=== PATIENT | male | born 1955 | race Caucasian/White ===

== ENCOUNTER 2019-10-29 12:38 | Observation (INO) | payer OTHER ==
[2019-10-29 13:27] LABS: Basophils # (A) 0.1 k/uL (0-0.2); Basophils % (A) 1 %; Eosinophils # (A) 0.3 k/uL (0-0.7); Eosinophils % (A) 4 %; HCT 49.9 % (39.0-53.0); HGB 16.2 gm/dL (13.0-17.5); Lymphocytes # (A) 1.7 k/uL (1.0-4.8); Lymphocytes % (A) 19 %; MCH 32.8 pg (25.0-35.0); MCHC 32.6 g/dL (31.0-37.0); MCV 100.7 fL (80.0-100.0); Mean Platelet Volume 7.4; Monocytes # (A) 0.4 k/uL (0-1.0); Monocytes % (A) 4 %; Neutrophils # (A) 6.2 k/uL (1.3-7.7); Neutrophils % (A) 71 %; Platelet Count 206 k/uL (150-450); RBC 4.95 m/uL (4.30-5.90); RDW 13.1 % (11.5-15.5); WBC 8.7 k/uL (3.8-10.6)
--- NOTE | 2019-10-29 13:30 | XR ---
EXAMINATION TYPE: XR chest 2V DATE OF EXAM: 10/29/2019 COMPARISON: NONE HISTORY: Left-sided chest pain into neck. TECHNIQUE: Frontal and lateral views of the chest are obtained. FINDINGS: Evidence of old granulomatous disease with superior right lower lobe calcified granuloma an d calcified right hilar lymph nodes. There is some chronic parenchymal change without suspicious foc al air space opacity, pleural effusion, or pneumothorax seen. The cardiac silhouette size is within normal limits. The osseous structures are intact. IMPRESSION: Chronic changes without acute process.
[2019-10-29] MEDS ORDERED: ASPIRIN 325 MG TAB PO STA (13:31)
--- NOTE | 2019-10-29 13:31 | ED ---
General Adult HPI - General Chief complaint: Chest Pain Stated complaint: Pain in neck going down left arm Time Seen by Provider: 10/29/19 13:11 Source: patient, RN notes reviewed, old records reviewed Mode of arrival: wheelchair Limitations: no limitations - History of Present Illness Initial comments: 64-year-old male presents for evaluation of chest pain, left-sided neck pain and left arm pain. Pain is been present for 2 days. Is constant in nature. Patient has associated diaphoresis. He denies shooting or stabbing pain. He describes it as a central chest pressure. He states he was at an outside hospital approximately 2 weeks ago and was diagnosed with "blood disorder", he does not know any of the details of this diagnosis. He does not report a known history of coronary artery disease. He denies vomiting. Denies abdominal pain. - Related Data Home Medications Medication Instructions Recorded Confirmed No Known Home Medications 10/29/19 10/29/19 Allergies Allergy/AdvReac Type Severity Reaction Status Date / Time No Known Allergies Allergy Verified 10/29/19 14:52 Review of Systems ROS Statement: Those systems with pertinent positive or pertinent negative responses have been documented in the HPI. ROS Other: All systems not noted in ROS Statement are negative. Past Medical History Past Medical History: Heart Failure Additional Past Medical History / Comment(s): "blood disease" History of Any Multi-Drug Resistant Organisms: MRSA Date of last positivie culture/infection: unknown MDRO Source:: rt hand Past Surgical History: Hernia Repair, Orthopedic Surgery Past Psychological History: No Psychological Hx Reported Smoking Status: Current every day smoker Past Alcohol Use History: Daily Past Drug Use History: None Reported General Exam Limitations: no limitations General appearance: alert, in no apparent distress Head exam: Present: atraumatic, normocephalic Eye exam: Present: normal appearance, PERRL ENT exam: Present: normal exam Neck exam: Present: normal inspection. Absent: tenderness, meningismus Respiratory exam: Present: respiratory distress, wheezes (Scattered wheezing, no respiratory distress) Cardiovascular Exam: Present: regular rate, normal rhythm GI/Abdominal exam: Present: soft. Absent: distended, tenderness, guarding, rebound Extremities exam: Present: normal capillary refill, pedal edema (Trace pedal edema bilaterally) Neurological exam: Present: alert, oriented X3, CN II-XII intact. Absent: motor sensory deficit Psychiatric exam: Present: normal affect, normal mood Skin exam: Present: warm, diaphoretic Course Vital Signs 10/29/19 10/29/19 10/29/19 12:56 13:08 13:35 Temperature 98.1 F Pulse Rate 89 85 Pulse Rate [ 84 Telescope Repairer ] Respiratory 20 18 Rate Blood Pressure 139/87 137/86 O2 Sat by Pulse 98 96 Oximetry 10/29/19 14:52 Temperature 98.8 F Pulse Rate 80 Pulse Rate [ Telescope Repairer ] Respiratory 18 Rate Blood Pressure 157/82 O2 Sat by Pulse 95 Oximetry EKG Findings - EKG Comments: EKG Findings:: EKG: Normal sinus rhythm, LVH with repolarization abnormality, no ST segment depression and T-wave abnormality in lead 1, 2, 3, aVF and the l ateral precordial leads V4 V5 and V6. No ST segment elevation. Rate of 84, FL interval 148, QRS duration 96, QTC 467. Medical Decision Making - Medical Decision Making 64-year-old presenting with chest tightness, radiating to the left arm. EKG showing diffuse ST segment depression, no old for comparison. Patient is a poor historian. Workup reveals chest x-ray which is negative for acute cardiopulmonary disease, CT angiography is negative for PE, shows granulomatous disease. She has a normal CBC, normal CMP, negative initial troponin. I discussed case with Dr. Welch and Dr. Andrew. Will admit on IV heparin for chest pain with EKG changes and unstable angina. - Lab Data Result diagrams: 10/29/19 13:17 10/29/19 13:17 Lab Results 10/29/19 10/29/19 10/29/19 Range/Units 13:17 13:17 13:17 WBC 8.7 (3.8-10.6) k/uL RBC 4.95 (4.30-5.90) m/uL Hgb 16.2 (13.0-17.5) gm/dL Hct 49.9 (39.0-53.0) % MCV 100.7 H (80.0-100.0) fL MCH 32.8 (25.0-35.0) pg MCHC 32.6 (31.0-37.0) g/dL RDW 13.1 (11.5-15.5) % Plt Count 206 (150-450) k/uL Neutrophils % 71 % Lymphocytes % 19 % Monocytes % 4 % Eosinophils % 4 % Basophils % 1 % Neutrophils # 6.2 (1.3-7.7) k/uL Lymphocytes # 1.7 (1.0-4.8) k/uL Monocytes # 0.4 (0-1.0) k/uL Eosinophils # 0.3 (0-0.7) k/uL Basophils # 0.1 (0-0.2) k/uL PT 9.7 (9.0-12.0) sec INR 0.9 (<1.2) APTT 24.7 (22.0-30.0) sec Sodium 136 L (137-145) mmol/L Potassium 4.5 (3.5-5.1) mmol/L Chloride 103 (98-107) mmol/L Carbon Dioxide 28 (22-30) mmol/L Anion Gap 5 mmol/L BUN 13 (9-20) mg/dL Creatinine 0.74 (0.66-1.25) mg/dL Est GFR (CKD-EPI)AfAm >90 (>60 ml/min/1.73 sqM) Est GFR (CKD-EPI)NonAf >90 (>60 ml/min/1.73 sqM) Glucose 128 H (74-99) mg/dL Calcium 8.8 (8.4-10.2) mg/dL Magnesium 1.9 (1.6-2.3) mg/dL Total Bilirubin 0.7 (0.2-1.3) mg/dL AST 43 (17-59) U/L ALT 30 (4-49) U/L Alkaline Phosphatase 78 (38-126) U/L Troponin I (0.000-0.034) ng/mL NT-Pro-B Natriuret Pep pg/mL Total Protein 6.5 (6.3-8.2) g/dL Albumin 4.1 (3.5-5.0) g/dL 10/29/19 10/29/19 Range/Units 13:17 13:17 WBC (3.8-10.6) k/uL RBC (4.30-5.90) m/uL Hgb (13.0-17.5) gm/dL Hct (39.0-53.0) % MCV (80.0-100.0) fL MCH (25.0-35.0) pg MCHC (31.0-37.0) g/dL RDW (11.5-15.5) % Plt Count (150-450) k/uL Neutrophils % % Lymphocytes % % Monocytes % % Eosinophils % % Basophils % % Neutrophils # (1.3-7.7) k/uL Lymphocytes # (1.0-4.8) k/uL Monocytes # (0-1.0) k/uL Eosinophils # (0-0.7) k/uL Basophils # (0-0.2) k/uL PT (9.0-12.0) sec INR (<1.2) APTT (22.0-30.0) sec Sodium (137-145) mmol/L Potassium (3.5-5.1) mmol/L Chloride (98-107) mmol/L Carbon Dioxide (22-30) mmol/L Anion Gap mmol/L BUN (9-20) mg/dL Creatinine (0.66-1.25) mg/dL Est GFR (CKD-EPI)AfAm (>60 ml/min/1.73 sqM) Est GFR (CKD-EPI)NonAf (>60 ml/min/1.73 sqM) Glucose (74-99) mg/dL Calcium (8.4-10.2) mg/dL Magnesium (1.6-2.3) mg/dL Total Bilirubin (0.2-1.3) mg/dL AST (17-59) U/L ALT (4-49) U/L Alkaline Phosphatase (38-126) U/L Troponin I <0.012 (0.000-0.034) ng/mL NT-Pro-B Natriuret Pep 127 pg/mL Total Protein (6.3-8.2) g/dL Albumin (3.5-5.0) g/dL Critical Care Time Critical Care Time: Yes Total Critical Care Time: 35 Disposition Clinical Impression: Unstable angina pectoris Disposition: ADMITTED IP TO THIS [facility] Condition: Stable Is patient prescribed a controlled substance at d/c from ED?: No Referrals: Jace Connelly MD [Primary Care Provider] - 1-2 days Decision to Admit Reason: Admit from EC Decision Date: 10/29/19 Decision Time: 15:11
[2019-10-29 13:36] LABS: ALT 30 U/L (4-49); AST 43 U/L (17-59); African American GFR (CKD) >90 (>60 ml/min/1.73 sqM); Albumin 4.1 g/dL (3.5-5.0); Alkaline Phosphatase 78 U/L (38-126); Anion Gap 5 mmol/L; Blood Urea Nitrogen 13 mg/dL (9-20); Calcium 8.8 mg/dL (8.4-10.2); Carbon Dioxide 28 mmol/L (22-30); Chloride 103 mmol/L (98-107); Glucose 128 mg/dL (74-99); Magnesium 1.9 mg/dL (1.6-2.3); Non-African American GFR(CKD) >90 (>60 ml/min/1.73 sqM); Potassium 4.5 mmol/L (3.5-5.1); Sodium 136 mmol/L (137-145); Total Bilirubin 0.7 mg/dL (0.2-1.3); Total Protein 6.5 g/dL (6.3-8.2)
[2019-10-29 13:37] LABS: INR 0.9 (<1.2); Partial Thromboplastin Time 24.7 sec (22.0-30.0); Prothrombin Time 9.7 sec (9.0-12.0)
--- NOTE | 2019-10-29 14:33 | CT ---
EXAMINATION TYPE: CT angio chest DATE OF EXAM: 10/29/2019 COMPARISON: Chest x-ray earlier today. HISTORY: Left sided, head, neck and chest pain. Difficulty breathing. CT DLP: 399.6 mGycm. Automated Exposure Control for Dose Reduction was Utilized. CONTRAST: CTA scan of the thorax is performed with IV Contrast, patient injected with 100 mL of Isovue 370, pul monary embolism protocol. MIP Images are created on CT scanner and reviewed. FINDINGS: LUNGS: There is calcified 1.3 cm nodule or granuloma in the periphery inferior of the right upper lob e axial image 59. The lungs are grossly clear, there is no concerning noncalcified parenchymal mass o r nodule identified. There is no pleural effusion or pneumothorax seen bilaterally. The tracheobro nchial tree is patent. MEDIASTINUM: There is satisfactory enhancement of the pulmonary artery and its branches, there is no CT evidence for pulmonary embolism. Satisfactory enhancement of the thoracic aorta without aneurysm o r dissection. There are no greater than 1 cm noncalcified hilar or mediastinal lymph nodes. Confirmat ion of calcified right hilar and right tracheobronchial lymph nodes No cardiomegaly or pericardial e ffusion is seen. OTHER: Scattered calcifications throughout the spleen. Multilevel spurring in the thoracic spine. IMPRESSION: No CTA evidence for acute pulmonary embolism. Confirmation of old granulomatous disease. No suspicious acute pulmonary process.
[2019-10-29] MEDS ORDERED: NITROGLYCERIN SL TABS 0.4 MG TAB SUBLINGUAL PRN (15:06)
[2019-10-29] MEDS ORDERED: HEPARIN SODIUM,PORCINE 5,000 UNIT/ML 1 ML VIAL IV ONE (15:06)
[2019-10-29] MEDS ORDERED: HEPARIN SOD,PORK IN 0.45% NACL 25,000 UNIT in 0.45% NACL 1 250ML.BAG IV SCH (15:15)
[2019-10-29] MEDS ORDERED: LORazepam 2 MG/ML INJ IV PRN ×3 (16:05)
[2019-10-29] MEDS ORDERED: THIAMINE 100 MG/ML 2 ML VIAL IM STA (16:05)
[2019-10-29] MEDS: THIAMINE 100 MG TAB PO SCH (18:04)
[2019-10-29] MEDS ORDERED: TEMAZEPAM 15 MG CAP PO PRN (19:18)
[2019-10-29] MEDS ORDERED: HYDROmorphone 0.5 MG/0.5 ML SYRINGE IVP PRN (19:18)
--- NOTE | 2019-10-29 19:53 | HP ---
HISTORY AND PHYSICAL DATE OF SERVICE: 10/29/2019 CHIEF COMPLAINT: Chest pain. HISTORY OF PRESENT ILLNESS: This 64-year-old gentleman with a past medical history of multiple medical problems, including blood disorder, history of GERD, history of MRSA, history of hernia repair, being followed by Dr. Chew in the outpatient setting, was recently admitted to [facility] and was diagnosed to have blood disorder. Currently the patient is complaining of significant chest pain on the left side. The patient also had left neck pain and shoulder pain radiating to the left arm. The patient came to [facility] and was admitted for further evaluation and treatment. There is no history of any fever, rigor or chills. No history of headache, loss of consciousness, seizures at this time. PAST MEDICAL HISTORY: GERD, history of recent blood disorder, hernia repair. HOME MEDICATIONS: None. ALLERGIES: NONE. FAMILY HISTORY: History of asthma in the family. SOCIAL HISTORY: history of alcohol intake. No history of substance abuse. smoking. REVIEW OF SYSTEMS: ENT: No diminished hearing. No diminished vision. Otherwise as mentioned earlier. CARDIOVASCULAR SYSTEM: As mentioned earlier. RESPIRATORY SYSTEM: As mentioned earlier. GI: No nausea, vomiting. : No dysuria or retention. NERVOUS SYSTEM: As mentioned earlier. ALLERGY/IMMUNOLOGY: No asthma, hayfever. MUSCULOSKELETAL: As mentioned earlier. HEMATOLOGY/ONCOLOGY: As mentioned earlier. ENDOCRINE: No history of diabetes, hypothyroidism. CONSTITUTIONAL: As mentioned earlier. DERMATOLOGY: Negative. RHEUMATOLOGY: Negative. PSYCHIATRY: As mentioned earlier. PHYSICAL EXAMINATION: Patient alert and oriented x3. Pulse 71, blood pressure 148/74, respiration 18, temperature 98.7, pulse ox 97% on room air. HEENT: Conjunctivae normal. Oral mucosa moist. NECK: No jugular venous distention. No carotid bruit. No lymph node enlargement. CARDIOVASCULAR SYSTEM: S1, S2 muffled. RESPIRATORY SYSTEM: Breath sounds diminished at the bases. A few scattered rhonchi and crackles. ABDOMEN: Soft, non-tender. No mass palpable. LEGS: No edema. No swelling. NERVOUS SYSTEM: Higher functions as mentioned earlier. Moves all 4 limbs. No focal motor or sensory deficit. LYMPHATICS: No lymph node palpable in neck, axillae or groin. SKIN: No ulcer, rash, bleeding. JOINTS: No active deforming arthropathy. LABS: Labs at this time show WBC 8.6, hemoglobin 16.2, MCV 100.7. Sodium 136 and glucose 128. ASSESSMENT: 1. Left-sided chest pain and neck pain, possibly musculoskeletal. 2. Rule out coronary artery disease. 3. Increased mean corpuscular volume. 4. Hyponatremia. 5. Increased random blood sugar. 6. Rule out recent blood disorder diagnosis. 7. History of gastroesophageal reflux disease. 8. History of methicillin-resistant Staphylococcus aeruginosa. 9. History of hernia repair. 10.History of ETOH. 11.History of nicotine dependence. RECOMMENDATIONS AND DISCUSSION: In this 64-year-old gentleman who presented with multiple complex medical issues, we will monitor the patient closely. I would recommend symptomatic treatment of the pain. Cardiology consultation. Otherwise, will obtain records from the [facility]. CIWA protocol. Prognosis guarded because of the multiple complex medical issues. Further recommendations to follow. MMODL / IJN: [id number] / MTDD
[2019-10-29] MEDS: HYDROcodone/APAP 5-325MG 1 EACH TAB PO PRN (20:32)
[2019-10-30 06:00] LABS: Basophils # (A) 0.1 k/uL (0-0.2); Basophils % (A) 1 %; Eosinophils # (A) 0.4 k/uL (0-0.7); Eosinophils % (A) 5 %; HCT 49.7 % (39.0-53.0); HGB 16.2 gm/dL (13.0-17.5); Lymphocytes # (A) 1.5 k/uL (1.0-4.8); Lymphocytes % (A) 21 %; MCH 33.2 pg (25.0-35.0); MCHC 32.6 g/dL (31.0-37.0); Macrocytosis Slight; Mean Platelet Volume 7.2; Monocytes # (A) 0.3 k/uL (0-1.0); Monocytes % (A) 4 %; Neutrophils # (A) 4.8 k/uL (1.3-7.7); Neutrophils % (A) 67 %; Platelet Count 199 k/uL (150-450); RBC 4.88 m/uL (4.30-5.90); RDW 12.9 % (11.5-15.5); WBC 7.1 k/uL (3.8-10.6)
[2019-10-30 06:24] LABS: African American GFR (CKD) >90 (>60 ml/min/1.73 sqM); Anion Gap 4 mmol/L; Blood Urea Nitrogen 13 mg/dL (9-20); Calcium 8.5 mg/dL (8.4-10.2); Carbon Dioxide 27 mmol/L (22-30); Chloride 105 mmol/L (98-107); Cholesterol 200 mg/dL (<200); Glucose 107 mg/dL (74-99); HDL Cholesterol 97 mg/dL (40-60); LDL Cholesterol,Calculated 83 mg/dL (0-99); Non-African American GFR(CKD) >90 (>60 ml/min/1.73 sqM); Sodium 136 mmol/L (137-145); Triglycerides 99 mg/dL (<150)
[2019-10-30] MEDS: THIAMINE 100 MG TAB PO SCH (06:32)
[2019-10-30] MEDS: HYDROcodone/APAP 5-325MG 1 EACH TAB PO PRN (06:32)
[2019-10-30] MEDS ORDERED: PANTOPRAZOLE 40 MG TABLET PO SCH (07:30)
[2019-10-30 08:39] VITALS: TEMP 97.8
[2019-10-30] MEDS ORDERED: ASPIRIN 325 MG TAB PO SCH (09:00)
[2019-10-30 09:21] LABS: Appearance,Urine Clear (Clear); Bilirubin,Urine Negative (Negative); Blood,Urine Negative (Negative); Color,Urine Yellow; Glucose,Urine (UA) Negative (Negative); Ketones,Urine 1+ (Negative); Leukocyte Esterase,Urine Negative (Negative); Nitrite,Urine Negative (Negative); PH, Urine 6.5 (5.0-8.0); Protein,Urine Negative (Negative); Specific Gravity,Urine 1.024 (1.001-1.035); Urobilinogen,Urine <2.0 mg/dL (<2.0)
--- NOTE | 2019-10-30 10:53 | P.CRDCN ---
History of Present Illness Consult date: 10/30/19 Chief complaint: Chest pain History of present illness: This is a very pleasant 64-year-old gentleman with no significant past medical history but history of smoking presented to the hospital complaining of chest discomfort. He was in his usual state of health yesterday when he was sitting at home and started experiencing discomfort in the mid of the chest, as a squeezing sensation, without any radiation to the arms or neck or shoulders and without any associated symptoms of shortness of breath, dizziness, heart racing, or syncope. Currently he is chest pain-free. 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 When he presented to the hospital he underwent an EKG which showed sinus rhythm with ST changes likely secondary to LVH severe underlying coronary artery disease, be ruled out completely. 3 sets of cardiac enzymes were checked and came in to be unremarkable. He underwent a CTA of the chest and that came in to be unremarkable for PE. The patient does not have any diabetes or hypertension or dyslipidemia and known coronary artery disease in the past but he does have significant history of smoking. At this point I am going to obtain a stress test to rule out severe underlying coronary artery disease. Please note that the patient does have a very significant family history of CAD involving his father. Past Medical History Past Medical History: Blood Disorder, GERD/Reflux Additional Past Medical History / Comment(s): Pt states he was recently hospita lized at [facility] where he was diagnosed with some sort of blood disease/pt cannot remember what kind of blood disease, occasional lower leg edema, bronchitis. History of Any Multi-Drug Resistant Organisms: MRSA Date of last positivie culture/infection: unknown MDRO Source:: rt hand Past Surgical History: Hernia Repair, Orthopedic Surgery, Tonsillectomy Additional Past Surgical History / Comment(s): R hand injury as a child with tendon grafting (donor L foot) and skin grafting (donor abdominal skin), bilateral inguinal hernia repairs, colonoscopy. Past Anesthesia/Blood Transfusion Reactions: No Reported Reaction Smoking Status: Current every day smoker - Past Family History Mother Family Medical History: Asthma Father Family Medical History: Myocardial Infarction (CT) Additional Family Medical History / Comment(s): Father of a CT at the age of 75 yrs. Medications and Allergies Home Medications Medication Instructions Recorded Confirmed Type No Known Home Medications 10/29/19 10/29/19 History Allergies Allergy/AdvReac Type Severity Reaction Status Date / Time No Known Allergies Allergy Verified 10/29/19 14:52 Physical Exam Vitals: Vital Signs Temp Pulse Pulse Resp BP BP Pulse Ox 10/30/19 08:30 97.8 F 64 18 133/80 95 10/30/19 04:00 98.0 F 69 18 153/75 95 10/30/19 00:00 97.9 F 69 18 155/92 94 L 10/29/19 20:00 97.9 F 70 18 143/107 95 10/29/19 16:15 98.2 F 66 16 157/90 99 10/29/19 16:07 98.7 F 71 18 148/75 97 10/29/19 14:52 98.8 F 80 18 157/82 95 10/29/19 13:35 85 18 137/86 96 10/29/19 13:08 84 10/29/19 12:56 98.1 F 89 20 139/87 98 Intake and Output 10/29/19 10/30/19 10/30/19 22:59 06:59 14:59 Intake Total 260 89.805 Balance 260 89.805 Intake: IV 20 20 Invasive Line 1 20 20 Intake, IV Titration 69.805 Amount Heparin Sod,Pork in 0.45% 69.805 NaCl 25,000 unit In 0.45 % NaCl 1 250ml.bag @ 10. 75 UNITS/KG/HR 9.996 mls/ hr IV .Q24H [facility] Rx#: [id number] Oral 240 Other: Voiding Method Urinal # Voids 1 3 Weight 92.986 kg 86.4 kg - Constitutional General appearance: no acute distress - Respiratory Respiratory: bilateral: CTA - Cardiovascular Rhythm: regular Heart sounds: normal: S1, S2 Results 10/30/19 05:45 10/30/19 05:45 Cardiac Enzymes 10/29/19 10/29/19 10/29/19 Range/Units 13:17 13:17 16:25 AST 43 (17-59) U/L Troponin I <0.012 <0.012 (0.000-0.034) ng/mL 10/29/19 Range/Units 19:14 AST (17-59) U/L Troponin I <0.012 (0.000-0.034) ng/mL Coagulation 10/29/19 10/29/19 10/30/19 Range/Units 13:17 22:15 05:45 PT 9.7 (9.0-12.0) sec APTT 24.7 83.0 H 57.4 H (22.0-30.0) sec Lipids 10/30/19 Range/Units 05:45 Triglycerides 99 (<150) mg/dL Cholesterol 200 H (<200) mg/dL HDL Cholesterol 97 H (40-60) mg/dL CBC 10/29/19 10/30/19 Range/Units 13:17 05:45 WBC 8.7 7.1 (3.8-10.6) k/uL RBC 4.95 4.88 (4.30-5.90) m/uL Hgb 16.2 16.2 (13.0-17.5) gm/dL Hct 49.9 49.7 (39.0-53.0) % Plt Count 206 199 (150-450) k/uL Comprehensive Metabolic Panel 10/29/19 10/30/19 Range/Units 13:17 05:45 Sodium 136 L 136 L (137-145) mmol/L Potassium 4.5 4.0 (3.5-5.1) mmol/L Chloride 103 105 (98-107) mmol/L Carbon Dioxide 28 27 (22-30) mmol/L BUN 13 13 (9-20) mg/dL Creatinine 0.74 0.67 (0.66-1.25) mg/dL Glucose 128 H 107 H (74-99) mg/dL Calcium 8.8 8.5 (8.4-10.2) mg/dL AST 43 (17-59) U/L ALT 30 (4-49) U/L Alkaline Phosphatase 78 (38-126) U/L Total Protein 6.5 (6.3-8.2) g/dL Albumin 4.1 (3.5-5.0) g/dL Current Medications Generic Name Dose Route Start Last Admin Trade Name Freq PRN Reason Stop Dose Admin Hydrocodone Bitart/Acetaminophen 1 each 10/29/19 19:18 10/30/19 06:32 Wheelwright 5-325 PO 1 each Q6HR PRN Administration Pain Aspirin 325 mg 10/30/19 09:00 10/30/19 08:34 Aspirin PO 325 mg DAILY [facility] Administration Folic Acid 1 mg 10/30/19 12:00 Folic Acid PO DAILY@1200 [facility] Hydromorphone HCl 0.5 mg 10/29/19 19:18 Dilaudid IVP Q3HR PRN Severe Pain Heparin Sodium/Sodium Chloride 250 mls @ 9.996 mls/hr 10/29/19 15:15 10/30/19 00:00 25,000 unit/ Sodium Chloride IV 8.75 units/kg/hr .Q24H [facility] 8.136 mls/hr Titration Protocol 10.75 UNITS/KG/HR Lorazepam 1 mg 10/29/19 16:05 Ativan IV Q2HR PRN CIWA 8 or 9 Lorazepam 1 mg 10/29/19 16:05 Ativan IV Q1HR PRN CIWA 10 to 15 Lorazepam 2 mg 10/29/19 16:05 Ativan IV 10/31/19 16:05 Q10M PRN CIWA 16 or higher Multivitamins 1 each 10/30/19 12:00 Theragran PO DAILY@1200 [facility] Nitroglycerin 0.4 mg 10/29/19 15:06 Nitrostat SUBLINGUAL Q5M PRN Chest Pain Pantoprazole Sodium 40 mg 10/30/19 07:30 10/30/19 06:33 Protonix PO 40 mg [id number] [facility] Administration Temazepam 15 mg 10/29/19 19:18 10/29/19 22:27 Restoril PO 15 mg HS PRN Administration Insomnia Thiamine HCl 100 mg 10/29/19 17:30 10/30/19 06:32 Vitamin B-1 PO 100 mg BID-W/MEALS [facility] Administration Intake and Output 10/29/19 10/30/19 10/30/19 22:59 06:59 14:59 Intake Total 260 89.805 Balance 260 89.805 Intake: IV 20 20 Invasive Line 1 20 20 Intake, IV Titration 69.805 Amount Heparin Sod,Pork in 0.45% 69.805 NaCl 25,000 unit In 0.45 % NaCl 1 250ml.bag @ 10. 75 UNITS/KG/HR 9.996 mls/ hr IV .Q24H [facility] Rx#: [id number] Oral 240 Other: Voiding Method Urinal # Voids 1 3 Weight 92.986 kg 86.4 kg 10/30/19 05:45 10/30/19 05:45 Assessment and Plan Assessment: Assessment #1 chest discomfort #2 significant history of smoking Plan #1 acute coronary event was ruled out #2 PE was ruled out #3 rule out severe underlying coronary artery disease #4 pursue with a stress test #5 follow-up with the patient
[2019-10-30 11:31] VITALS: BP 142/80; PULSE 57; RESP 16
[2019-10-30] MEDS ORDERED: MULTIVITAMINS, THERA 1 EACH TAB PO SCH (12:00)
[2019-10-30] MEDS ORDERED: FOLIC ACID 1 MG TAB PO SCH (12:00)
--- NOTE | 2019-10-30 12:55 | P.CONS ---
History of Present Illness - Reason for Consult Consult date: 10/30/19 Recent Diagnosis at outside hospital for "blood disorder" Requesting physician: Ag Andrew - Chief Complaint Chest Pain - History of Present Illness Mr. Zamorano is a 64 year old male patient with daily tobacco use who presents for evaluation in emergency department for Chest Pain. During his initial work- up he mentions he was recently evaluated at [facility] and diagnosed with a "blood disorder" although he is unable to name or describe. Because of this information hematology has been consulted to further evaluate. Review of his CBC was outstanding, with the exception of elevated MCV. Per his history he also consumes daily alcohol. Review of Systems A 14 point review of systems assessed and completed and all negative except HPI Past Medical History Past Medical History: Blood Disorder, GERD/Reflux Additional Past Medical History / Comment(s): Pt states he was recently hospitalized at [facility] where he was diagnosed with some sort of blood disease/pt cannot remember what kind of blood disease, occasional lower leg edema, bronchitis. History of Any Multi-Drug Resistant Organisms: MRSA Year Discovered:: unknown MDRO Source:: rt hand Past Surgical History: Hernia Repair, Orthopedic Surgery, Tonsillectomy Additional Past Surgical History / Comment(s): R hand injury as a child with tendon grafting (donor L foot) and skin grafting (donor abdominal skin), bilateral inguinal hernia repairs, colonoscopy. Past Anesthesia/Blood Transfusion Reactions: No Reported Reaction Smoking Status: Current every day smoker - Past Family History Mother Family Medical History: Asthma Father Family Medical History: Myocardial Infarction ([place]) Additional Family Medical History / Comment(s): Father of a [place] at the age of 75 yrs. Medications and Allergies Home Medications Medication Instructions Recorded Confirmed Type Folic Acid 1 mg PO DAILY@1200 30 Days #30 tab 10/30/19 Rx HYDROcodone/APAP 5-325MG [[place] 1 each PO Q6HR PRN #12 tab 10/30/19 Rx 5-325] Multivitamins, Thera [Multivitamin 1 each PO DAILY@1200 30 Days #30 10/30/19 Rx (formulary)] tab Pantoprazole [Protonix] 40 mg PO AC-BRKFST 30 Days #30 10/30/19 Rx tablet. Thiamine [Vitamin B-1] 100 mg PO BID-W/MEALS 30 Days #60 10/30/19 Rx tab Allergies Allergy/AdvReac Type Severity Reaction Status Date / Time No Known Allergies Allergy Verified 10/29/19 14:52 Physical Exam Vitals: Vital Signs Temp Pulse Pulse Resp BP BP Pulse Ox 10/30/19 11:00 57 L 16 142/80 96 10/30/19 08:30 97.8 F 64 18 133/80 95 10/30/19 04:00 98.0 F 69 18 153/75 95 10/30/19 00:00 97.9 F 69 18 155/92 94 L 10/29/19 20:00 97.9 F 70 18 143/107 95 10/29/19 16:15 98.2 F 66 16 157/90 99 10/29/19 16:07 98.7 F 71 18 148/75 97 10/29/19 14:52 98.8 F 80 18 157/82 95 10/29/19 13:35 85 18 137/86 96 10/29/19 13:08 84 10/29/19 12:56 98.1 F 89 20 139/87 98 Intake and Output 10/29/19 10/30/19 10/30/19 22:59 06:59 14:59 Intake Total 260 89.805 Balance 260 89.805 Intake: IV 20 20 Invasive Line 1 20 20 Intake, IV Titration 69.805 Amount Heparin Sod,Pork in 0.45% 69.805 NaCl 25,000 unit In 0.45 % NaCl 1 250ml.bag @ 10. 75 UNITS/KG/HR 9.996 mls/ hr IV .Q24H [facility] Rx#: [id number] Oral 240 Other: Voiding Method Urinal # Voids 1 3 Weight 92.986 kg 86.4 kg - Constitutional General appearance: average body habitus, no acute distress - EENT Eyes: EOMI, poor dentition ENT: NA/AT, normal oropharynx - Neck Neck: normal ROM - Respiratory Respiratory: bilateral: CTA - Cardiovascular Rhythm: regular Heart sounds: normal: S1, S2 - Gastrointestinal General gastrointestinal: normal bowel sounds, soft, tenderness - Integumentary Integumentary: normal - Neurologic Neurologic: CNII-XII intact - Musculoskeletal Musculoskeletal: generalized weakness - Psychiatric Psychiatric: A&O x's 3, appropriate affect Results CBC & Chem 7: 10/30/19 05:45 10/30/19 05:45 Labs: Abnormal Lab Results - Last 24 Hours (Table) 10/29/19 10/29/19 10/29/19 Range/Units 13:17 13:17 22:15 MCV 100.7 H (80.0-100.0) fL APTT 83.0 H (22.0-30.0) sec Sodium 136 L (137-145) mmol/L Glucose 128 H (74-99) mg/dL Cholesterol (<200) mg/dL HDL Cholesterol (40-60) mg/dL Urine Ketones (Negative) 10/30/19 10/30/19 10/30/19 Range/Units 05:45 05:45 05:45 MCV 102.0 H (80.0-100.0) fL APTT 57.4 H (22.0-30.0) sec Sodium 136 L (137-145) mmol/L Glucose 107 H (74-99) mg/dL Cholesterol 200 H (<200) mg/dL HDL Cholesterol 97 H (40-60) mg/dL Urine Ketones (Negative) 10/30/19 Range/Units 08:39 MCV (80.0-100.0) fL APTT (22.0-30.0) sec Sodium (137-145) mmol/L Glucose (74-99) mg/dL Cholesterol (<200) mg/dL HDL Cholesterol (40-60) mg/dL Urine Ketones 1+ H (Negative) Chest x-ray: report reviewed CT scan - chest: report reviewed Assessment and Plan Plan: Assessment and recommendations: Consultation of 64 year old male with daily alcohol and tobacco use. Consultation for mention of a "blood disorder" diagnosed at [facility] per patient. Originally presented with Chest Pain, Cardiology is following and CTA did not reveal PE or other etiology for symptoms. Macrocytosis: Without anemia: - This is likely due to underlying decreased vitamin absorption secondary to daily alcohol abuse: - B12, MMA, Liver function to be assessed - He continues on Thiamine and Folate per ETOH protocol - Request of records from [facility] and will review when received - At this time there is no abnormalities found on his basic blood work-up, woth the exception of mild elevation in MCV, which again is likely related to his ETOH consumption - We will await records and results and provide further recs if necessary. Thank you for the consultation on this patient Physician Attest: I have completed the full history and physical and developed the complete assessment and plan. Agree with dictation by SCREED OPERATOR, Dictated as a scribe
[2019-10-30 13:47] LABS: Total Bilirubin 0.7 mg/dL (0.2-1.3)
--- NOTE | 2019-10-30 13:50 | NM ---
EXAMINATION TYPE: NM stress cardiolite complete DATE OF EXAM: 10/30/2019 COMPARISON: NONE HISTORY: Chest pain TECHNIQUE: After the intravenous administration of 9.5 mCi Tc 99m Sestamibi - Rest images obtained 4 5 minutes post injection. The patient exercised using a KEHINDE protocol and 1 minute prior to peak e xercise was injected with 25 mCi Tc 99m Sestamibi - Stress images obtained 10 minutes post injection. FINDINGS: Targeted heart rate was achieved during performance of the study. Review of stress and rest SPECT krishan ges demonstrates no distinct perfusion abnormality. Reduced uptake involving the inferior wall is see n on both stress and rest images. Gated analysis shows normal wall motion with an estimated left vent ricular ejection fraction of 45 %. IMPRESSION: No scintigraphic evidence for reversible ischemia
--- NOTE | 2019-10-31 11:25 | P.DS ---
Providers Date of admission: 10/29/19 15:07 Expected date of discharge: 10/30/19 Attending physician: Ag Andrew Consults: 10/29/19 15:07 Consult Physician Urgent Consulting Provider: Ad Welch Consult Reason/Comments: UA Do you want consulting provider notified?: Already Contacted 10/29/19 19:17 Consult Physician Routine Consulting Provider: Tonny Chew Consult Reason/Comments: blood disorder Do you want consulting provider notified?: Yes Primary care physician: Jace Connelly Hospital Course: Final diagnosis Left-side chest pain and neck pain, possibly musculoskeletal Ruled out coronary artery disease Increased MCV hyponatremia Increased random blood sugar Rule out recent blood disorder diagnosis History of GERD History of MRSA History of hernia repair History of ETOH History of nicotine dependence Discharge disposition Patient is being discharged in a stable condition with guarded prognosis to home. Patient will follow-up with Dr. Connelly upon discharge. Patient also instructed to follow up with Dr. welch in the outpatient setting. Patient to follow up with hematology out of [facility]. Total time taken is greater than 35 minutes. History of present illness This is a 64-year-old male who was recently admitted with significant chest pain on the left with some left shoulder and neck pain and was being closely monitored. Patient was evaluated by cardiology and underwent a stress test that was negative. Patient was also evaluated by hematology about a recent diagnosis of a "blood disease" as patient states he was told by Naima Woodard recently. Patient instructed to follow up with hematology from [facility] and also instructed to follow up with primary care provider in the outpatient setting. Patient underwent CTA which was negative for PE. Currently no reports of chest pain, palpitations, or shortness of breath. Patient is afebrile. No reports of nausea or vomiting and patient is tolerating diet. On exam vital signs are stable. Temp is 97.8F, pulse is 57, respirations are 16, blood pressure 142/80, oxygen saturation is 96% on room air. Cardio S1, S2 are present. Respiratory shows diminished breath sounds with no wheezing or rhonchi noted. Abdomen is soft and non-tender. Nervous system shows no focal deficits. Please refer to medication reconciliation sheet for a list of medications. Patient Condition at Discharge: Stable Plan - Discharge Summary Discharge Rx Participant: No New Discharge Prescriptions: New Folic Acid 1 mg PO DAILY@1200 30 Days #30 tab Multivitamins, Thera [Multivitamin (formulary)] 1 each PO DAILY@1200 30 Days #30 tab HYDROcodone/APAP 5-325MG [[place] 5-325] 1 each PO Q6HR PRN #12 tab PRN Reason: Pain Pantoprazole [Protonix] 40 mg PO AC-BRKFST 30 Days #30 tablet. Thiamine [Vitamin B-1] 100 mg PO BID-W/MEALS 30 Days #60 tab Discharge Medication List Folic Acid 1 mg PO DAILY@1200 30 Days #30 tab 10/30/19 [Rx] HYDROcodone/APAP 5-325MG [[place] 5-325] 1 each PO Q6HR PRN #12 tab 10/30/19 [Rx] Multivitamins, Thera [Multivitamin (formulary)] 1 each PO DAILY@1200 30 Days #30 tab 10/30/19 [Rx] Pantoprazole [Protonix] 40 mg PO AC-BRKFST 30 Days #30 tablet. 10/30/19 [Rx] Thiamine [Vitamin B-1] 100 mg PO BID-W/MEALS 30 Days #60 tab 10/30/19 [Rx] Follow up Appointment(s)/Referral(s): Jace Connelly MD [Primary Care Provider] - 11/05/19 10:00 am Ad Welch MD [STAFF PHYSICIAN] - 1 Week (Office to call you with follow up appointment.) Patient Instructions/Handouts: Chest Pain (DC), How to Stop Smoking (DC), Abuse of Alcohol (DC) Activity/Diet/Wound Care/Special Instructions: Activity Limited until follow-up Follow-up with primary care provider upon discharge Follow-up with [facility]aima Woodard hematology Continue current diet Continue to avoid alcohol Discharge Disposition: HOME SELF-CARE
--- NOTE | 2019-11-05 13:01 | EST ---
EXERCISE STRESS AGE: 64 SEX: M HT: 5'11" WT: 190 lbs. PROTOCOL: [place] STAGE: 3 DURATION OF EXERCISE: 6:48 HEART RATE REST: 64 BLOOD PRESSURE REST: 151/92 MAXIMUM HEART RATE ACHIEVED: 143 MAXIMUM BLOOD PRESSURE: 186/92 85% MPHR: 133 100% MPHR: 157 METS: 7.9 INDICATIONS: Chest pain CLINICAL INFORMATION: Baseline EKG shows sinus rhythm, poor R-wave progression, extensive ST-T wave changes. Patient exercised on Vernon protocol for a total of 6 minutes and 40 seconds achieving 91% of predicted maximal heart rate without chest pain. At peak exercise, there was 1.[address] segment depression noted in the inferolateral leads. CONCLUSION: 1. Average exercise tolerance. 2. Inconclusive EKG part of the stress test due to baseline EKG abnormalities. MMODL / IJN: [id number] /
== END 2019-10-30 15:15 | disposition home or self-care (01) ==
LOC: EC 12:38 → 3SCARD 15:07 → INTOOBSV 15:07 → 3SCARD 15:37 → UNDODISIN 10-30 15:15
PROVIDERS: ADMIT Hospitalist; ATTEND Hospitalist
DX: R07.89 Other chest pain (principal); M54.2 Cervicalgia; K21.9 Gastro-esophageal reflux disease without esophagitis; Z82.5 Family history of asthma and other chronic lower respiratory diseases; Z86.14 Personal history of Methicillin resistant Staphylococcus aureus infection; F10.10 Alcohol abuse, uncomplicated; Z82.49 Family history of ischemic heart disease and other diseases of the circulatory system; F17.200 Nicotine dependence, unspecified, uncomplicated; E87.1 Hypo-osmolality and hyponatremia; R73.9 Hyperglycemia, unspecified; D75.89 Other specified diseases of blood and blood-forming organs
CPT/HCPCS: 96376; 96365; 96366 ×2; 96372; 93005 ×2; 99291; 36415; 93017; 83921; 83880; 80061; 80053; 80048; 82607; 82247; 83735; 84450; 84460; 84484; 85025 ×2; 85610; 85730 ×2; 81003; 71046; 71275; 78452; G0378 ×2; A9500; J1644 ×2; J3411; Q9967

== ENCOUNTER 2023-07-05 16:14 | Inpatient (IN) | payer MEDICARE, OTHER ==
--- NOTE | 2023-07-05 17:04 | ED ---
Upper Extremity HPI - General Chief Complaint: Extremity Injury, Upper Stated Complaint: L swollen M finger Time Seen by Provider: 07/05/23 17:02 Source: patient, RN notes reviewed Mode of arrival: ambulatory Limitations: no limitations - History of Present Illness Initial Comments: 67-year-old male presenting to the ER with a chief complaint of left middle finger injury. He states he was unloading fiberglass 3 days ago and he felt as if he had a sliver in his finger. He states the past couple days he has been trying to remove it without relief. He states he tried to pull out is much as he could. He woke up this morning and his finger was swollen and painful. He reports limited range of motion and is exquisitely tender to touch. He has not taken anything for pain. Last tetanus is unknown. Denies any other injuries or complaints. Denies fevers, chills, night sweats, chest pain, shortness of breath, abdominal pain, peripheral edema. - Related Data Home Medications Medication Instructions Recorded Confirmed No Known Home Medications 07/05/23 07/05/23 Allergies Allergy/AdvReac Type Severity Reaction Status Date / Time No Known Allergies Allergy Verified 07/05/23 19:23 Review of Systems ROS Statement: Those systems with pertinent positive or pertinent negative responses have been documented in the HPI. ROS Other: All systems not noted in ROS Statement are negative. Past Medical History Past Medical History: Blood Disorder, GERD/Reflux Additional Past Medical History / Comment(s): occasional lower leg edema, bronchitis. History of Any Multi-Drug Resistant Organisms: MRSA Date of last positivie culture/infection: unknown MDRO Source:: rt hand Past Surgical History: Hernia Repair, Orthopedic Surgery, Tonsillectomy Additional Past Surgical History / Comment(s): R hand injury as a child with t endon grafting (donor L foot) and skin grafting (donor abdominal skin), bilateral inguinal hernia repairs, colonoscopy. Past Anesthesia/Blood Transfusion Reactions: No Reported Reaction Past Psychological History: No Psychological Hx Reported Smoking Status: Current every day smoker Past Alcohol Use History: Daily Past Drug Use History: Marijuana - Past Family History Mother Family Medical History: Asthma Father Family Medical History: Myocardial Infarction ([place]) Additional Family Medical History / Comment(s): Father of a [place] at the age of 75 yrs. General Exam Limitations: no limitations General appearance: alert, in no apparent distress Respiratory exam: Present: normal lung sounds bilaterally. Absent: respiratory distress, wheezes, rales, rhonchi, stridor Cardiovascular Exam: Present: regular rate, normal rhythm, normal heart sounds. Absent: systolic murmur, diastolic murmur, rubs, gallop, clicks Extremities exam: Present: other (Right 3rd digit erythema and edema to DIP and PIP joints. Limited range of motion of PIP. Exquisitely tender to touch. Warm to touch. Less than 3 seconds capillary refill. White scaling to palmar side.) Neurological exam: Present: alert, oriented X3, CN II-XII intact Skin exam: Present: warm, dry, intact, normal color. Absent: rash Course Vital Signs 07/05/23 07/05/23 07/05/23 16:51 19:08 20:29 Temperature 98.7 F 98.1 F 98.1 F Pulse Rate 69 78 70 Respiratory 18 18 16 Rate Blood Pressure 190/75 156/85 161/83 O2 Sat by Pulse 99 99 99 Oximetry - Reevaluation(s) Reevaluation #1: 07/05/23 19:[address] Carlin who accepts medical consultation. Reevaluation #2: 07/05/23 19:[address] Cordero, [facility], who accepts medical admission. Medical Decision Making - Medical Decision Making Was pt. sent in by a medical professional or institution ([employer], EXECUTIVE MANAGER, urgent care, hospital, or prison...) When possible be specific @ -No Did you speak to anyone other than the patient for history (EMS, parent, family, police, friend...)? What history was obtained from this source @ -No Did you review nursing and triage notes (agree or disagree)? Why? @ -I reviewed and agree with nursing and triage notes Were old charts reviewed (outside hosp., previous admission, EMS record, old EKG, old radiological studies, urgent care reports/EKG's, prison records)? Report findings @ -No old charts were reviewed Differential Diagnosis (chest pain, altered mental status, abdominal pain women, abdominal pain men, vaginal bleeding, weakness, fever, dyspnea, syncope, headache, dizziness, GI bleed, back pain, seizure, CVA, palpatations, mental health, musculoskeletal)? @ -Differential Musculoskeletal: Muscular strain, contusion, ligament sprain, fracture, arthritis, septic arthritis, bursitis, cellulitis, muscle spasm, nerve compression, DVT, arterial occlusion, herpes zoster, electrolyte abnormality, tumor.... This is not meant to be in all inclusive list EKG interpreted by me (3pts min.). @ -None X-rays interpreted by me (1pt min.). @ -Left finger x-ray interpreted me significant for soft tissue swelling throughout third digit. No radiopaque foreign body or osseous process. CT interpreted by me (1pt min.). @ -None done U/S interpreted by me (1pt. min.). @ -None done What testing was considered but not performed or refused? (CT, X-rays, U/S, labs)? Why? @ -None What meds were considered but not given or refused? Why? @ -None Did you discuss the management of the patient with other professionals (professionals i.e. , PA, EXECUTIVE MANAGER, lab, RT, psych nurse, social worker clinical, apartment groundskeeper, teacher, employment security officer, case liner)? Give summary @ -Yes, case discussed with Dr. Carlin who accepts medical consultation. I also discussed case with Dr. Cordero, [facility], who accepts medical admission. Was smoking cessation discussed for >3mins.? @ -I discussed smoking cessation for greater than 3 minutes. The risk of smoking were discussed with the patient including but not limited to risks of cancer, stroke, coronary artery disease and COPD. Also discussed with patient were multiple methods of quitting smoking. Lastly we discussed the financial cost of smoking. Was critical care preformed (if so, how long)? @ -No Were there social determinants of health that impacted care today? How? (Homelessness, low income, unemployed, alcoholism, drug addiction, tr ansportation, low edu. Level, literacy, decrease access to med. care, skilled nursing, rehab)? @ -No Was there de-escalation of care discussed even if they declined (Discuss DNR or withdrawal of care, Hospice)? DNR status @ -No What co-morbidities impacted this encounter? (DM, HTN, Smoking, COPD, CAD, Cancer, CVA, ARF, Chemo, Hep., AIDS, mental health diagnosis, sleep apnea, morbid obesity)? @ -Smoker] Was patient admitted / discharged? Hospital course, mention meds given and route, prescriptions, significant lab abnormalities, going to OR and other pertinent info. @ -Admitted. 67-year-old male presenting to the ER with a chief complaint of left finger injury/swelling. History and physical exam completed. Vitals stable. Patient in no signs of acute distress and nontoxic-appearing. Left third digit erythematous and edematous. Tenderness to palpation. Decreased active range of motion due to swelling and pain. Left upper extremity neurovascularly intact. <3 sec third digit capillary refill. X-rays obtained negative for acute radiopaque foreign body or osseous process. Tetanus updated. Due to concern of flexor tenosynovitis on exam findings admission considered. Case discussed with Dr. Carlin who accepts medical consultation. I also spoke with Dr. Cordero, [facility], who accepts medical admission. Patient be started on IV vancomycin and Zosyn. ID and orthopedics on consult. Labs pending. Results discussed with patient, all questions answered. Patient agreeable for admission . Case discussed with ED attending, Dr. Ortiz. Undiagnosed new problem with uncertain prognosis? @ -No Drug Therapy requiring intensive monitoring for toxicity (Heparin, Nitro, Insulin, Cardizem)? @ -No Were any procedures done? @ -No Diagnosis/symptom? @ -Cellulitis v. flexor tenosynovitis Acute, or Chronic, or Acute on Chronic? @ -Acute Uncomplicated (without systemic symptoms) or Complicated (systemic symptoms)? @ -Uncomplicated] Side effects of treatment? @ -No Exacerbation, Progression, or Severe Exacerbation? @ -No Poses a threat to life or bodily function? How? (Chest pain, [place], [place], pneumonia, PE, COPD, DKA, ARF, appy, cholecystitis, CVA, Diverticulitis, Homicidal, Suicidal, threat to staff... and all critical care pts) @ -No - Lab Data Result diagrams: 07/05/23 19:58 07/05/23 19:58 Lab Results 07/05/23 07/05/23 07/05/23 Range/Units 19:58 19:58 19:58 WBC 12.3 H (3.8-10.6) k/uL RBC 4.99 (4.30-5.90) m/uL Hgb 16.0 (13.0-17.5) gm/dL Hct 49.6 (39.0-53.0) % MCV 99.4 (80.0-100.0) fL MCH 32.0 (25.0-35.0) pg MCHC 32.2 (31.0-37.0) g/dL RDW 13.0 (11.5-15.5) % Plt Count 323 (150-450) k/uL MPV 7.8 Neutrophils % 73 % Lymphocytes % 18 % Monocytes % 4 % Eosinophils % 4 % Basophils % 1 % Neutrophils # 9.0 H (1.3-7.7) k/uL Lymphocytes # 2.2 (1.0-4.8) k/uL Monocytes # 0.5 (0-1.0) k/uL Eosinophils # 0.5 (0-0.7) k/uL Basophils # 0.1 (0-0.2) k/uL Sodium 141 (137-145) mmol/L Potassium 3.9 (3.5-5.1) mmol/L Chloride 107 (98-107) mmol/L Carbon Dioxide 29 (22-30) mmol/L Anion Gap 5 mmol/L BUN 17 (9-20) mg/dL Creatinine 0.75 (0.66-1.25) mg/dL Est GFR (CKD-EPI)AfAm >90 (>60 ml/min/1.73 sqM) Est GFR (CKD-EPI)NonAf >90 (>60 ml/min/1.73 sqM) Glucose 104 H (74-99) mg/dL Plasma Lactic Acid [place] 1.7 (0.7-2.0) mmol/L Calcium 8.6 (8.4-10.2) mg/dL Total Bilirubin 0.5 (0.2-1.3) mg/dL AST 25 (17-59) U/L ALT 13 (4-49) U/L Alkaline Phosphatase 77 (38-126) U/L C-Reactive Protein <0.5 (<1.0) mg/dL Total Protein 6.8 (6.3-8.2) g/dL Albumin 4.0 (3.5-5.0) g/dL - Radiology Data Radiology results: report reviewed, image reviewed Disposition Clinical Impression: Flexor tenosynovitis of finger Disposition: ADMITTED IP TO THIS [facility] Condition: Good Time of Disposition: 19:05
[2023-07-05] MEDS: DIPH,PERTUS(ACELL)TETVAC-LF 0.5 ML VIAL IM ONE (17:07)
[2023-07-05] MEDS: ACETAMINOPHEN TAB 325 MG TAB PO STA (17:08)
--- NOTE | 2023-07-05 17:25 | XR ---
EXAMINATION TYPE: XR finger LT DATE OF EXAM: 07/05/2023 5:20 PM CLINICAL INDICATION:Male, 67 years old with history of pain and swelling; COMPARISON: None TECHNIQUE: XR finger LT Frontal, lateral and oblique views were obtained. FINDINGS/IMPRESSION: Soft tissue swelling throughout the third digit without evidence for radiopaque foreign body or osseo us erosion. Correlate for cellulitis.
[2023-07-05] MEDS ORDERED: VANCOMYCIN IV PER PHARMACY 1 EACH MISC MISCELLANE PRN (18:55)
[2023-07-05] MEDS ORDERED: ACETAMINOPHEN TAB 325 MG TAB PO PRN (18:56)
[2023-07-05] MEDS ORDERED: NALOXONE 0.4 MG/ML 1 ML VIAL IV PRN (18:56)
[2023-07-05 20:08] LABS: Basophils # (A) 0.1 k/uL (0-0.2); Basophils % (A) 1 %; Eosinophils # (A) 0.5 k/uL (0-0.7); Eosinophils % (A) 4 %; HCT 49.6 % (39.0-53.0); Lymphocytes # (A) 2.2 k/uL (1.0-4.8); Lymphocytes % (A) 18 %; MCHC 32.2 g/dL (31.0-37.0); MCV 99.4 fL (80.0-100.0); Mean Platelet Volume 7.8; Monocytes # (A) 0.5 k/uL (0-1.0); Monocytes % (A) 4 %; Neutrophils % (A) 73 %; Platelet Count 323 k/uL (150-450); RBC 4.99 m/uL (4.30-5.90); WBC 12.3 k/uL (3.8-10.6)
[2023-07-05] MEDS: NICOTINE 14MG/24HR PATCH TRANSDERM STA (20:21)
[2023-07-05] MEDS: PIPERACILLIN-TAZOBACTAM 3.375 GM in SODIUM CHLORIDE 0.9% 100 ML IVPB STA (20:21)
[2023-07-05] MEDS: ONDANSETRON ODT 4 MG TAB PO STA (20:22)
[2023-07-05] MEDS: IBUPROFEN 400 MG TAB PO PRN (20:28)
[2023-07-05 20:36] LABS: ALT 13 U/L (4-49); AST 25 U/L (17-59); African American GFR (CKD) >90 (>60 ml/min/1.73 sqM); Alkaline Phosphatase 77 U/L (38-126); Anion Gap 5 mmol/L; Blood Urea Nitrogen 17 mg/dL (9-20); Calcium 8.6 mg/dL (8.4-10.2); Carbon Dioxide 29 mmol/L (22-30); Chloride 107 mmol/L (98-107); Glucose 104 mg/dL (74-99); Non-African American GFR(CKD) >90 (>60 ml/min/1.73 sqM); Potassium 3.9 mmol/L (3.5-5.1); Sodium 141 mmol/L (137-145); Total Bilirubin 0.5 mg/dL (0.2-1.3); Total Protein 6.8 g/dL (6.3-8.2)
[2023-07-05 20:40] LABS: C Reactive Protein <0.5 mg/dL (<1.0)
[2023-07-05] MEDS: VANCOMYCIN 1,500 MG in SODIUM CHLORIDE 0.9% 500 ML 500 ML IVPB STA (21:29)
[2023-07-05] MEDS: HYDROcodone/APAP 5-325MG 1 EACH TAB PO STA (22:57)
[2023-07-06 05:08] LABS: Erythrocyte Sedimentation Rate 26 mm/Hr (0-20)
[2023-07-06] MEDS: VANCOMYCIN 1,250 MG in SODIUM CHLORIDE 0.9% 250 ML IVPB SCH (05:15)
[2023-07-06] MEDS ORDERED: VANCOMYCIN 1,250 MG in SODIUM CHLORIDE 0.9% 250 ML IVPB SCH (06:00)
[2023-07-06 07:25] LABS: African American GFR (CKD) >90 (>60 ml/min/1.73 sqM); Non-African American GFR(CKD) >90 (>60 ml/min/1.73 sqM)
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
[2023-07-06] MEDS ORDERED: MIDAZOLAM 2 MG/2 ML VIAL ONE (12:06)
[2023-07-06] MEDS ORDERED: ONDANSETRON 4 MG/2 ML VIAL ONE (12:06)
[2023-07-06] MEDS ORDERED: PROPOFOL 10 MG/ML 20 ML VIAL IV ONE (12:06)
[2023-07-06] MEDS ORDERED: fentaNYL (PF) 50 MCG/ML 2 ML AMP ONE (12:06)
[2023-07-06] MEDS ORDERED: LIDOCAINE 1% INJ 10MG/ML (20 ML MDV) ONE (12:06)
[2023-07-06] MEDS: SODIUM CHLORIDE 0.9% 250 ML IV ONE (12:09)
[2023-07-06] MEDS: LACTATED RINGERS 1,000 ML IV ONE (12:25)
[2023-07-06] MEDS: ceFAZolin 3,000 MG in SODIUM CHLORIDE 0.9% IRRIGATIO 3,000 ML IRRIGATION ONE (12:33)
--- NOTE | 2023-07-06 13:03 | P.OP ---
Date of Procedure: 07/06/23 Preoperative Diagnosis: 1. Left middle finger cellulitis and deep abscess 2. Current every day cigarette smoker Postoperative Diagnosis: Same Procedure(s) Performed: Left finger irrigation and debridement ( an excisional debridement using a scalpel was performed of all nonviable skin and subcutaneous tissue down to the level of the flexor tendon sheath) Anesthesia: JASWINDER Surgeon: Home Carlin Estimated Blood Loss (ml): 25 IV fluids (ml): 500 Pathology: other (Deep cultures were taken) Condition: stable Disposition: PACU Indications for Procedure: The patient is very pleasant 67-year-old male with a medical history significant for being a current cigarette smoker who injured his left middle finger while working on a [employer] several days ago. He thinks a piece of fiberglass may become embedded in his finger. Over the last several days he has developed progressively worsening pain and swelling. He presented to the ER last night and was admitted to internal medicine. I met with the patient this morning and his finger had fusiform swelling with purulence over the volar aspect of the middle finger. I recommended an incision and drainage in the operating room. We discussed the potential risks and competitions of surgery including but certainly not limited to risks of anesthesia, continued or worsened infection, damage to local blood vessel or nerves, damage to tendons, stiffness or contractures, need for further surgery, systemic infection, and possibly loss of the finger. The patient voiced his understanding these potential complications will also acknowledging other less common complications. He provided both his verbal and written consent to go forward with surgery. He also understands that he is at an elevated risk of having a complication due to his cigarette smoking. I strongly encouraged him to quit. Operative Findings: There was gross purulence in the subcutaneous space over the volar aspect of the left middle finger. There was skin necrosis over the radial border of the middle finger at the level of the PIP joint. There is no involvement of the flexor tendon sheath. Description of Procedure: The patient was identified in preoperative holding and the correct left hand and middle finger were marked with my initials. I reviewed the consent form with the patient and all of his questions were answered. The patient was then brought back to the operating room. He was left on the gurney where a general anesthetic and preoperative antibiotics were given. A tourniquet was applied to the proximal aspect of the left arm but was not used. An arm table was placed under the left arm. The left arm was then prepped and draped in the standard sterile fashion. Prior to starting surgery a timeout was performed identifying the correct patient, operative extremity, and procedure. I began by examining the patient's left hand and middle finger while he was under anesthesia. On inspection there was fusiform swelling and erythema throughout the entire finger. There was an area of fluctuance with visible purulence under the skin or the volar radial aspect of the middle finger at the level of the PIP joint. A Georgi type zigzag incision was then created over the volar aspect of the middle finger with the apex at the level of the purulence. Skin incision was made with a scalpel and immediately upon incising the skin there was a large taylor of gross pus. This was swabbed and sent for culture. Using tenotomy scissors I carefully debrided down to the flexor tendon sheath. This was incised and there was no purulence within the flexor tendon sheath. I then performed an excisional debridement using a scalpel of all nonviable skin and subcutaneous tissue. The tips of the tenotomy scissors were used to carefully break up loculations. The skin over the radial border of the middle finger at the level of the PIP joint was necrotic and debrided back to healthy- appearing tissue. The wound was then thoroughly irrigated using 1 L of sterile saline and cystoscopy tubing. Following irrigation the wound appeared clean with no evidence of purulence. The incision was then loosely reapproximated using 3-0 Nylon horizontal mattress sutures. The tip of the finger was well perfused. A sterile dressing consisting of Betadine soaked Adaptic, 4 x 4, fluffs, Kerlix, and an Himanshu wrap was applied. The patient was then awoken from h is anesthetic and then transferred from the OR table to a gurney having tolerated the procedure well. Plan: I will defer antibiotics to infectious disease and internal medicine. Deep cultures were taken during the procedure. His surgical dressing will be changed tomorrow at which point I will transfer wound care to infectious disease. I have no plans for further operative care but we'll monitor the patient's course while in house in case he needs a second debridement.
[2023-07-06] MEDS ORDERED: HYDROmorphone 0.5 MG/0.5 ML SYRINGE IVP PRN (13:16)
[2023-07-06] MEDS: HYDROmorphone 0.5 MG/0.5 ML SYRINGE IVP ONE ×2 (13:24→13:34)
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
[2023-07-07] MEDS: VANCOMYCIN TROUGH DUE 1 EACH MISC MISCELLANE ONE (07:41)
[2023-07-07] MEDS: HYDROcodone/APAP 5-325MG 1 EACH TAB PO PRN (07:47)
[2023-07-07 08:28] LABS: African American GFR (CKD) >90 (>60 ml/min/1.73 sqM); Non-African American GFR(CKD) >90 (>60 ml/min/1.73 sqM)
--- NOTE | 2023-07-07 09:37 | P.PN ---
Subjective Progress Note Date: 07/07/23 Principal diagnosis: left hand infection. Status post I&D left hand, middle finger. The patient is very pleasant 67-year-old male with a medical history significant for being a current cigarette smoker who injured his left middle finger while working on a [employer] several days ago. He thinks a piece of fiberglass may become embedded in his finger. Over the last several days he has developed progressively worsening pain and swelling. He presented to the ER last night and was admitted to internal medicine. I met with the patient this morning and his finger had fusiform swelling with purulence over the volar aspect of the middle finger. I recommended an incision and drainage in the operating room. We discussed the potential risks and competitions of surgery including but certainly not limited to risks of anesthesia, continued or worsened infection, damage to local blood vessel or nerves, damage to tendons, stiffness or contractures, need for further surgery, systemic infection, and possibly loss of the finger. The patient voiced his understanding these potential complications will also acknowledging other less common complications. He provided both his verbal and written consent to go forward with surgery. He also understands that he is at an elevated risk of having a complication due to his cigarette smoking. I strongly encouraged him to quit. 07/07/2023: Today is postoperative day #1 status post I&D left middle finger and deep cultures. The patient is stable from an orthopedic standpoint. He has no new complaints or concerns today. He is having minimal pain to this point. Operative cultures are pending. blood cultures are showing no growth at 24 hours. Vital signs are stable. Objective - Vital Signs Vital signs: Vital Signs Temp 98.5 F 07/07/23 03:26 Pulse 59 L 07/07/23 03:26 Resp 20 07/07/23 03:26 BP 145/69 07/07/23 03:26 Pulse Ox 96 07/07/23 03:26 FiO2 Intake & Output 07/06/23 07/07/23 07/07/23 18:59 06:59 18:59 Intake Total 1001 850 Output Total 610 Balance 391 850 Weight 81.647 kg Intake: IV 1001 Oral 850 Output: Urine 600 Estimated Blood Loss 10 Other: Voiding Method Urinal # Voids 3 - Exam this is a pleasant 67-year-old male in no acute distress. He is alert and oriented 3. Dressing is removed from the left hand and middle finger. Dressing had to be soaked off. There is mild sanguinous drainage on the dressing. There is no active bleeding at this time. He has limited range of motion of the middle finger secondary to swelling and pain. Erythema is improved. Capillary refill to the finger is less than 3 seconds. Neurovascular status to the upper extremity is intact. A new clean dressing is applied. - Labs CBC & Chem 7: 07/05/23 19:58 07/07/23 06:28 Labs: Microbiology - Last 24 Hours (Table) 07/05/23 20:00 Blood Culture - Preliminary Blood 07/05/23 19:45 Blood Culture - Preliminary Blood Assessment and Plan (1) Foreign body of left middle finger with infection Current Visit: Yes Status: Acute Code(s): S60.453A - SUPERFICIAL FOREIGN BODY OF LEFT MIDDLE FINGER, INIT ENCNTR; L08.9 - LOCAL INFECTION OF THE SKIN AND SUBCUTANEOUS TISSUE, UNSP SNOMED Code(s): 510521733 (2) Flexor tenosynovitis of finger Current Visit: Yes Status: Acute Code(s): M65.9 - SYNOVITIS AND TENOSY NOVITIS, UNSPECIFIED SNOMED Code(s): 670816694 Plan: the clinical findings are discussed with the patient. New dressing is applied today. We're awaiting further evaluation with infectious disease. Continue current care.
--- NOTE | 2023-07-07 14:40 | P.PN ---
Subjective Progress Note Date: 07/07/23 Principal diagnosis: Reason for follow-up is left index finger infection Patient is a 67-year-old male with a past medical history significant for reflux bronchitis current everyday smoker presenting to the hospital with left middle finger pain swelling and redness, the patient is status post Ortho evaluation and I&D as well as debridement of nonviable tissue on 07/06/2023. On today's evaluation that is 07/07/2023,the patient denies any fever or any chills, patient is breathing comfortably on room air, the patient denies chest pain shortness of breath and no significant cough, patient denies abdominal pain, no nausea vomiting or diarrhea. Patient pain to the left middle finger is currently controlled. Patient did have a creatinine 0.75 no CBC was done today culture currently pending Objective - Vital Signs Vital signs: Vital Signs Temp 97.8 F 07/07/23 08:23 Pulse 84 07/07/23 08:23 Resp 17 07/07/23 08:23 BP 151/70 07/07/23 08:23 Pulse Ox 99 07/07/23 08:23 FiO2 Intake & Output 07/06/23 07/07/23 07/07/23 18:59 06:59 18:59 Intake Total 1001 850 Output Total 610 Balance 391 850 Weight 81.647 kg Intake: IV 1001 Oral 850 Output: Urine 600 Estimated Blood Loss 10 Other: Voiding Method Urinal # Voids 3 - Exam GENERAL DESCRIPTION: An elderly male lying in bed in no distress RESPIRATORY SYSTEM: Unlabored breathing , decreased breath sounds at bases HEART: S1 S2 regular rate and rhythm , ABDOMEN: Soft , no tenderness EXTREMITIES: Left index finger is currently dressed no drainage on the dressing - Labs CBC & Chem 7: 07/05/23 19:58 07/07/23 06:28 Labs: Microbiology - Last 24 Hours (Table) 07/05/23 20:00 Blood Culture - Preliminary Blood 07/05/23 19:45 Blood Culture - Preliminary Blood Assessment and Plan (1) Flexor tenosynovitis of finger Current Visit: Yes Status: Acute Code(s): M65.9 - SYNOVITIS AND TENOSYNOVITIS, UNSPECIFIED SNOMED Code(s): 152622342 Plan: 1patient presented hospital with left middle finger pain swelling redness started from injury about 3 days ago with evidence of left middle finger abscess and cellulitis status post I&D by orthopedics which was extended down to the flexor sheath not involving any deep tissue likely from gram-positive skin fanny underlying gram-negative infection less like but not entirely excluded 2-patient is currently covered with vancomycin to continue while waiting for the culture to finalize and monitor clinical course closely Dictation was produced using [employer] dictation software. please excuse any grammatical, word or spelling errors. Time with Patient: Less than 30
--- NOTE | 2023-07-08 07:40 | P.HPIM ---
History of Present Illness This is a pleasant 67 years old male who presents with left middle finger swollen pain tenderness and redness deep cultures were obtained and pending Patient was found to have flexor tenosynovitis, he has been evaluated by surgical team and he was taken to urgent surgical incision and drainage.. He denies any other new complaint patient states it started as a small lesion while he got injured during his work and slowly get worse Currently patient feels better Patient denies any other complaint Of pain/trigger about half pack per day. He agrees but he declines nicotine He denies 2 beers. no is afebrile and hemodynamically stable Labs look stable except for mild leukocytosis of 12,000 illicit drugs ESR 26 CRP less than 0.5 Finger x-ray showing soft tissue swelling of the third finger no foreign body or fracture Review of Systems Review of systems CONSTITUTIONAL: No fever, no malaise, no fatigue. HEENT: No recent visual problems or hearing problems. Denied any sore throat. CARDIOVASCULAR: No orthopnea, PND, no palpitations, no syncope. PULMONARY: No shortness of breath, no cough, no hemoptysis. GASTROINTESTINAL: No diarrhea, no nausea, no vomiting, no abdominal pain. Normoactive bowel sounds. NEUROLOGICAL: No headaches, no weakness, no numbness. HEMATOLOGICAL: Denies any bleeding or petechiae. GENITOURINARY: Denies any burning micturition, frequency, or urgency. MUSCULOSKELETAL/RHEUMATOLOGICAL: Denies any joint pain, swelling, or any muscle pain. ENDOCRINE: Denies any polyuria or polydipsia. Past Medical History Past Medical History: GERD/Reflux Additional Past Medical History / Comment(s): bronchitis. History of Any Multi-Drug Resistant Organisms: MRSA Date of last positivie culture/infection: 2013 MDRO Source:: rt hand Past Surgical History: Hernia Repair, Orthopedic Surgery, Tonsillectomy Additional Past Surgical History / Comment(s): R hand injury as a child with ten don grafting (donor L foot) and skin grafting (donor abdominal skin), bilateral inguinal hernia repairs, colonoscopy. Past Anesthesia/Blood Transfusion Reactions: No Reported Reaction Past Psychological History: No Psychological Hx Reported Additional Psychological History / Comment(s): Pt lives in house with other people, rents room. He is on probation. He uses no assistive device. 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 Smoking Status: Current every day smoker Past Alcohol Use History: Daily Additional Past Alcohol Use History / Comment(s): Pt started smoking in 1966 and once quit for 15 years then resumed smoking in his 30's. Pt states he drinks around 2 drinks a day Past Drug Use History: Marijuana - Past Family History Mother Family Medical History: Asthma Father Family Medical History: Myocardial Infarction ([place]) Additional Family Medical History / Comment(s): Father of a [place] at the age of 75 yrs. Medications and Allergies Home Medications Medication Instructions Recorded Confirmed Type No Known Home Medications 07/05/23 07/05/23 History Allergies Allergy/AdvReac Type Severity Reaction Status Date / Time No Known Allergies Allergy Verified 07/05/23 19:23 Physical Exam Vitals: Vital Signs Temp Pulse Resp BP Pulse Ox 07/07/23 08:23 97.8 F 84 17 151/70 99 07/07/23 03:26 98.5 F 59 L 20 145/69 96 07/06/23 19:43 98.5 F 73 20 152/78 97 07/06/23 15:30 81 170/80 07/06/23 15:15 81 161/84 97 07/06/23 15:00 77 159/85 94 L 07/06/23 14:32 89 07/06/23 14:30 78 168/95 07/06/23 14:15 97.6 F 67 17 179/94 98 Intake and Output 07/06/23 07/07/23 07/07/23 22:59 06:59 14:59 Intake Total 850 Output Total 600 Balance -600 850 Intake: Oral 850 Output: Urine 600 Other: # Voids 3 GENERAL: The patient is alert and oriented x3, not in any acute distress. Well developed, well nourished. HEENT: Pupils are round and equally reacting to light. EOMI. No scleral icterus. No conjunctival pallor. Normocephalic, atraumatic. No pharyngeal erythema. No thyromegaly. CARDIOVASCULAR: S1 and S2 present. No murmurs, rubs, or gallops. PULMONARY: Chest is clear to auscultation, no wheezing , no crackles. ABDOMEN: Soft, nontender, nondistended, normoactive bowel sounds. No palpable organomegaly. MUSCULOSKELETAL: No joint swelling or deformity. -EXTREMITIES: No cyanosis, clubbing, or pedal edema. Left middle finger and hand wrapped in bandage dressing NEUROLOGICAL: Gross neurological examination did not reveal any focal deficits. SKIN: No rashes. no petechiae. Results CBC & Chem 7: 07/05/23 19:58 07/07/23 06:28 Labs: Microbiology - Last 24 Hours (Table) 07/05/23 20:00 Blood Culture - Preliminary Blood 07/05/23 19:45 Blood Culture - Preliminary Blood Thrombosis Risk Factor Assmnt - Choose All That Apply Any of the Below Risk Factors Present?: No Other Risk Factors: Yes Each Risk Factor Represents 2 Points: Age 61-74 years Thrombosis Risk Factor Assessment Total Risk Factor Score: 2 Thrombosis Risk Factor Assessment Level: Low Risk Assessment and Plan Assessment: Finger tenosynovitis s/p I&D Leukocytosis Hypertension Nicotine dependence Plan: Continue with antibiotic currently on IV vancomycin Orthopedic and ID team consult on the case Start Norvasc 5 mg Patient declines nicotine patch DVT prophylaxis: Subcutaneous heparin Prophylaxis Pepcid
--- NOTE | 2023-07-08 07:41 | P.EN ---
i came to see pt and he was in surgery , we will follow up
[2023-07-08] MEDS: amLODIPine 5 MG TAB PO SCH (08:33)
[2023-07-08 08:36] LABS: Basophils # (A) 0.08 X 10*3/uL (0.00-0.10); Basophils % (A) 0.8 %; Eosinophils # (A) 0.48 X 10*3/uL (0.04-0.35); Eosinophils % (A) 5.1 %; HCT 43.4 % (39.6-50.0); HGB 14.3 g/dL (13.0-17.0); Lymphocytes # (A) 2.29 X 10*3/uL (0.90-5.00); Lymphocytes % (A) 24.2 %; MCH 31.8 pg (27.0-32.0); MCHC 32.9 g/dL (32.0-37.0); MCV 96.4 FL (80.0-97.0); Mean Platelet Volume 9.8 FL (9.5-12.2); Monocytes # (A) 0.85 X 10*3/uL (0.20-1.00); NRBC Per 100 WBC 0 X 10*3/uL (0.00-0.01); Neutrophils # (A) 5.66 X 10*3/uL (1.80-7.70); Neutrophils % (A) 59.9 %; Platelet Count 250 X 10*3/uL (140-440); RDW 13.2 % (11.5-14.5); WBC 9.45 X 10*3/uL (4.50-10.00)
[2023-07-08 08:52] LABS: BUN/Creat Ratio 19.14 Ratio (12.00-20.00); Blood Urea Nitrogen 13.4 mg/dL (9.0-27.0); Calcium 8.6 mg/dL (8.7-10.3); Chloride 105 mmol/L (96-109); Glucose 105 mg/dL (70-110); Potassium 4.3 mmol/L (3.5-5.5); Sodium 141 mmol/L (135-145)
--- NOTE | 2023-07-08 09:40 | P.PN ---
Subjective Patient is doing well this morning. He says the pain in his Left middle finger is improved. He denies chest pain or shortness of breath. Objective - Vital Signs Vital signs: Vital Signs Temp 98.3 F 07/08/23 07:05 Pulse 59 L 07/08/23 07:05 Resp 19 07/08/23 07:05 BP 143/66 07/08/23 07:05 Pulse Ox 97 07/08/23 07:05 FiO2 Intake & Output 07/07/23 07/08/23 07/08/23 18:59 06:59 18:59 Output Total 300 Balance -300 Output: Urine 300 Other: # Voids 1 - Exam The dressing on his left hand was taken down. On inspection nylon sutures in place over the volar middle finger incision. There is superficial wound necrosis over the radial border of the PIP joint. There is still diffuse swelling and mild erythema throughout the finger but it is improved. The tip of his fingers warm and well-perfused brisk capillary refill. - Labs CBC & Chem 7: 07/08/23 04:58 07/08/23 04:58 Labs: Abnormal Lab Results - Last 24 Hours (Table) 07/08/23 07/08/23 Range/Units 04:58 04:58 Immature Gran # 0.09 H (0.00-0.04) X 10*3/uL Eosinophils # 0.48 H (0.04-0.35) X 10*3/uL Calcium 8.6 L (8.7-10.3) mg/dL Microbiology - Last 24 Hours (Table) 07/05/23 20:00 Blood Culture - Preliminary Blood 07/05/23 19:45 Blood Culture - Preliminary Blood 07/06/23 12:36 Gram Stain - Preliminary Finger - Left Third Wound Culture - Preliminary Presumptive MRSA Assessment and Plan Assessment: Postop day #2 status post left middle finger I&D, MRSA abscess Plan: The dressing was taken down today and the finger appears slightly improved. Clinically the patient feels better. His cultures are growing MRSA. I will defer to infectious disease for antibiotic recommendations and wound care/dressing recommendations. No plans for further operative intervention at this time. We will continue to follow peripherally while he is an inpatient.
--- NOTE | 2023-07-08 12:38 | P.PN ---
Subjective Progress Note Date: 07/08/23 Principal diagnosis: Reason for follow-up is left index finger infection Patient is a 67-year-old male with a past medical history significant for reflux bronchitis current everyday smoker presenting to the hospital with left middle finger pain swelling and redness, the patient is status post Ortho evaluation and I&D as well as debridement of nonviable tissue on 07/06/2023. On today's evaluation that is 07/08/2023,the patient remains to be afebrile, patient is on room air not requiring supplemental oxygen and denies any shortness of breath no chest pain or cough.Patient denies having any nausea or vomiting, no abdominal pain and no diarrhea has been reported, pain to the left middle finger slightly decreased in intensity. Patient white count is 9.45, creatinine 0.7 Vanco trough is 14.5 culture with presumptive MRSA blood culture negative Objective - Vital Signs Vital signs: Vital Signs Temp 98.3 F 07/08/23 07:05 Pulse 59 L 07/08/23 07:05 Resp 19 07/08/23 07:05 BP 143/66 07/08/23 07:05 Pulse Ox 97 07/08/23 07:05 FiO2 Intake & Output 07/07/23 07/08/23 07/08/23 18:59 06:59 18:59 Output Total 300 Balance -300 Output: Urine 300 Other: # Voids 1 - Exam GENERAL DESCRIPTION: An elderly male lying in bed in no distress RESPIRATORY SYSTEM: Unlabored breathing , decreased breath sounds at bases HEART: S1 S2 regular rate and rhythm , ABDOMEN: Soft , no tenderness EXTREMITIES: Left middle finger did have significant swelling and redness no drainage - Labs CBC & Chem 7: 07/08/23 04:58 07/08/23 04:58 Labs: Abnormal Lab Results - Last 24 Hours (Table) 07/08/23 07/08/23 Range/Units 04:58 04:58 Immature Gran # 0.09 H (0.00-0.04) X 10*3/uL Eosinophils # 0.48 H (0.04-0.35) X 10*3/uL Calcium 8.6 L (8.7-10.3) mg/dL Microbiology - Last 24 Hours (Table) 07/05/23 20:00 Blood Culture - Preliminary Blood 07/05/23 19:45 Blood Culture - Preliminary Blood 07/06/23 12:36 Gram Stain - Preliminary Finger - Left Third Wound Culture - Preliminary Presumptive MRSA Assessment and Plan (1) Flexor tenosynovitis of finger Current Visit: Yes Status: Acute Code(s): M65.9 - SYNOVITIS AND TENOSYNOVITIS, UNSPECIFIED SNOMED Code(s): 762123225 Plan: 1patient presented hospital with left middle finger pain swelling redness started from injury about 3 days ago with evidence of left middle finger abscess and cellulitis status post I&D by orthopedics which was extended down to the flexor sheath not involving any deep tissue likely from gram-positive skin fanny underlying gram-negative infection less like but not entirely excluded 2-patient culture currently growing present MRSA patient is covered with the vancomycin keeping in mind extensive infection will benefit from midline and the short course of IV daptomycin on discharge patient did agree to in office infusion rather than home infusion which may be better for this patient Dictation was produced using [employer] dictation software. please excuse any grammatical, word or spelling errors. Time with Patient: Less than 30
[2023-07-09 03:18] VITALS: TEMP 98.5
--- NOTE | 2023-07-09 06:48 | P.PN ---
Subjective Progress Note Date: 07/08/23 This is a pleasant 67 years old male who presents with left middle finger swollen pain tenderness and redness deep cultures were obtained and pending Patient was found to have flexor tenosynovitis, he has been evaluated by surgical team and he was taken to urgent surgical incision and drainage.. He denies any other new complaint patient states it started as a small lesion while he got injured during his work and slowly get worse Currently patient feels better Patient denies any other complaint Of pain/trigger about half pack per day. He agrees but he declines nicotine He denies 2 beers. no is afebrile and hemodynamically stable Labs look stable except for mild leukocytosis of 12,000 illicit drugs ESR 26 CRP less than 0.5 Finger x-ray showing soft tissue swelling of the third finger no foreign body or fracture 07/08/2023 Patient is seen and evaluated in follow-up with orthopedics along with infectious disease following currently maintained on antibiotics while awaiting finalized cultures. Preliminary showing MRSA and patient will likely benefit from IV antibiotics. Case management/social work following working on arranging discharge planning as patient will require antibiotics for 2 weeks. Patient received a midline per infectious disease. Patient is afebrile with no reports of chest pain or shortness of breath. Patient is asking when he can go home. Continue with local wound care. Review of systems: Constitutional: No reports of fatigue, fever, or chills Cardiovascular: No reports of chest pain or palpitations Respiratory: No reports of shortness of breath or cough GI: No reports of nausea, vomiting, or diarrhea : No reports of dysuria or retention Neurovascular: No reports of weakness or numbness, reports some tenderness of the left hand All medications have been reviewed Physical exam: GENERAL: The patient is alert and oriented x3, . Well developed, well nourished. Thin built, elderly appearing HEENT: Pupils are round and equally reacting to light. EOMI. No scleral icterus. No conjunctival pallor. Normocephalic, atraumatic. No pharyngeal erythema. No thyromegaly. CARDIOVASCULAR: S1 and S2 muffled PULMONARY: Diminished breath sounds bilaterally otherwise chest is clear to auscultation, no wheezing , no crackles. ABDOMEN: Soft, thin, nontender, nondistended, normoactive bowel sounds. No palpable organomegaly. MUSCULOSKELETAL: No joint swelling or deformity. EXTREMITIES: No cyanosis, clubbing, or pedal edema. Left index finger and hand wrapped in bandage dressing NEUROLOGICAL: Gross neurological examination did not reveal any focal deficits. SKIN: No rashes. no petechiae. Assessment: Left index finger tenosynovitis s/p I&D, culture showing MRSA Leukocytosis, secondary to above Hypertension Continued ongoing nicotine dependence GI prophylaxis DVT prophylaxis Full code Plan: Continue with antibiotic currently on IV vancomycin with infectious disease following. Plan is for midline and IV antibiotics. Case management following working on discharge planning including home care. Patient working on obtaining a ride with following a vehicle from friends to get to and from daily infusions. Orthopedic following status post I&D recommending outpatient follow-up and continuing with wound care and IV antibiotics Possible discharge planning in the next 24 to 48 hours The impression and plan of care has been dictated by Yary Hart, Nurse Practitioner as directed. Dr. Kamran MD I have performed a history and examination and MDM of this patient, discussed the same with the dictator, and agree with the dictator's assessment and plan as written ,documented as a scribe. Based on total visit time, I have performed more than 50% of the visit. Objective - Vital Signs Vital signs: Vital Signs Temp 98.3 F 07/08/23 07:05 Pulse 59 L 07/08/23 07:05 Resp 19 07/08/23 07:05 BP 143/66 07/08/23 07:05 Pulse Ox 97 07/08/23 07:05 FiO2 Intake & Output 07/07/23 07/08/23 07/08/23 18:59 06:59 18:59 Output Total 300 Balance -300 Output: Urine 300 Other: # Voids 1 - Labs CBC & Chem 7: 07/08/23 04:58 07/08/23 04:58 Labs: Abnormal Lab Results - Last 24 Hours (Table) 07/08/23 07/08/23 Range/Units 04:58 04:58 Immature Gran # 0.09 H (0.00-0.04) X 10*3/uL Eosinophils # 0.48 H (0.04-0.35) X 10*3/uL Calcium 8.6 L (8.7-10.3) mg/dL Microbiology - Last 24 Hours (Table) 07/05/23 20:00 Blood Culture - Preliminary Blood 07/05/23 19:45 Blood Culture - Preliminary Blood 07/06/23 12:36 Gram Stain - Preliminary Finger - Left Third Wound Culture - Preliminary Presumptive MRSA
[2023-07-09] MEDS: DAPTOmycin 350 MG in SODIUM CHLORIDE 0.9% 50 ML IVPB SCH (12:15)
--- NOTE | 2023-07-09 12:34 | P.PN ---
Subjective Progress Note Date: 07/09/23 Principal diagnosis: Reason for follow-up is left index finger infection Patient is a 67-year-old male with a past medical history significant for reflux bronchitis current everyday smoker presenting to the hospital with left middle finger pain swelling and redness, the patient is status post Ortho evaluation and I&D as well as debridement of nonviable tissue on 07/06/2023. On today's evaluation that is 07/09/2023, the patient continues to be afebrile, the patient is on room air and breathing comfortably, the Pt denies having any chest pain or cough, the patient denies having any abdominal pain no vomiting or any diarrhea has been reported by the nursing staff, pain to the left middle finger has decreased in intensity no drainage No new labs has been obtained today blood culture negative Objective - Vital Signs Vital signs: Vital Signs Temp 98.5 F 07/09/23 07:42 Pulse 60 07/09/23 08:00 Resp 18 07/09/23 08:00 BP 154/76 07/09/23 07:42 Pulse Ox 98 07/09/23 07:42 FiO2 Intake & Output 07/08/23 07/09/23 07/09/23 18:59 06:59 18:59 Other: Voiding Method Urinal # Voids 4 2 - Exam GENERAL DESCRIPTION: An elderly male lying in bed in no distress RESPIRATORY SYSTEM: Unlabored breathing , decreased breath sounds at bases HEART: S1 S2 regular rate and rhythm , ABDOMEN: Soft , no tenderness EXTREMITIES: Left middle finger did have significant swelling and redness no drainage - Labs CBC & Chem 7: 07/08/23 04:58 07/08/23 04:58 Labs: Microbiology - Last 24 Hours (Table) 07/05/23 20:00 Blood Culture - Preliminary Blood 07/05/23 19:45 Blood Culture - Preliminary Blood 07/06/23 12:36 Anaerobic Culture - Preliminary Finger - Left Third 07/06/23 12:36 Gram Stain - Final Finger - Left Third Wound Culture - Final Methicillin resist S. aureus Assessment and Plan (1) Flexor tenosynovitis of finger Current Visit: Yes Status: Acute Code(s): M65.9 - SYNOVITIS AND TENOSYNOVITIS, UNSPECIFIED SNOMED Code(s): 221485144 Plan: 1patient presented hospital with left middle finger pain swelling redness started from injury about 3 days ago with evidence of left middle finger abscess and cellulitis status post I&D by orthopedics which was extended down to the flexor sheath not involving any deep tissue likely from gram-positive skin fanny underlying gram-negative infection less like but not entirely excluded 2-patient local culture with MRSA culture has been finalized with MRSA blood culture has been negative keeping in mind extensive infection patient did get a midline plan is for a 10-day course of IV daptomycin on discharge prescription provided to the window caser note. Patient follow-upDictation was produced using [employer] dictation software. please excuse any grammatical, word or spelling errors.
[2023-07-09 14:39] VITALS: BP 151/78; PULSE 65; RESP 20
[2023-07-10] MEDS ORDERED: VANCOMYCIN TROUGH DUE 1 EACH MISC MISCELLANE ONE (05:00)
--- NOTE | 2023-07-12 05:00 | P.DS ---
Providers Date of admission: 07/05/23 20:10 Expected date of discharge: 07/09/23 Attending physician: Phong Cordero MD Consults: 07/05/23 18:56 Consult Physician Urgent Consulting Provider: [facility] Consult Reason/Comments: flexsor tenosynovitis Do you want consulting provider notified?: Already Contacted 07/05/23 19:04 Consult Physician Urgent Consulting Provider: Carlyn Rivera Consult Reason/Comments: flexsor tensynovitis Do you want consulting provider notified?: Yes, Notify in am Primary care physician: Stated None Hospital Course: Final diagnosis Left middle finger tenosynovitis s/p I&D, culture showing MRSA Leukocytosis, secondary to above Hypertension Continued ongoing nicotine dependence GI prophylaxis DVT prophylaxis Full code Discharge disposition Patient is being discharged in a stable condition with guarded prognosis to home with home care. Patient will follow-up with Dr. Lavelle Andrew in the outpatient setting upon discharge. Patient is to continue with IV antibiotics and close outpatient follow-up with infectious disease as well as orthopedics as scheduled. Total time taken is greater than 35 minutes. Hospital course This is a 67-year-old male who was recently admitted with increasing pain of the left hand with leukocytosis being closely monitored. Patient was working on something in the yard and was cut having increasing pain and redness and swelling of the left middle finger with concerns of tenosynovitis and is status post incision and drainage with orthopedics. Cultures growing MRSA and patient has received a midline and will continue on antibiotics on discharge with close outpatient follow-up with infectious disease. Patient to continue with wound care and elevating left hand while at rest. Continue to encourage meticulous handwashing. Patient has been cleared by consultations with close outpatient follow-up. Please refer to consultation notes for further HPI. Currently no reports of chest pain, shortness of breath, or palpitations. Patient is afebrile. No reports of nausea or vomiting and patient is tolerating diet. Patient will be discharged home today. Patient will need outpatient follow-up with orthopedics as well as infectious disease. Guarded prognosis and high risk for readmissions given patient's comorbidities. Physical exam: Gen: This is a 67-year-old male who is awake, alert and oriented x 3, well- developed, well-nourished, elderly appearing HEENT: Head is atraumatic, normocephalic. Pupils equal, round. Sclerae is anicteric. NECK: Supple. No JVD. No lymphadenopathy. No thyromegaly. LUNGS: Clear to auscultation. No wheezes or rhonchi. No intercostal retractions. HEART: Regular rate and rhythm. No murmur. ABDOMEN: Soft. Bowel sounds are present. No masses. No tenderness. EXTREMITIES: No pedal edema. No calf tenderness. Left middle finger currently dressed and dressing is dry and intact NEUROLOGICAL: Patient is awake, alert and oriented x3. Cranial nerves 2 through 12 are grossly intact. Please refer to medication reconciliation sheet for a list of medications. The impression and plan of care has been dictated by Yary Hart, Nurse Practitioner as directed. Dr. Kamran MD I have performed a history and examination and MDM of this patient, discussed the same with the dictator, and agree with the dictator's assessment and plan as written ,documented as a scribe. Based on total visit time, I have performed more than 50% of the visit. Patient Condition at Discharge: Good Plan - Discharge Summary Discharge Rx Participant: No New Discharge Prescriptions: New DAPTOmycin [Cubicin] 350 mg IVPB Q24H each Ibuprofen [Motrin] 400 mg PO Q6HR PRN tab PRN Reason: Mild Pain Or Fever > 100.5 Acetaminophen Tab [Tylenol] 650 mg PO Q6HR PRN tab PRN Reason: Mild Pain Or Fever > 100.5 amLODIPine [Norvasc] 5 mg PO DAILY #30 tab Discharge Medication List Acetaminophen Tab [Tylenol] 650 mg PO Q6HR PRN tab 07/09/23 [Rx] DAPTOmycin [Cubicin] 350 mg IVPB Q24H each 07/09/23 [Rx] Ibuprofen [Motrin] 400 mg PO Q6HR PRN tab 07/09/23 [Rx] amLODIPine [Norvasc] 5 mg PO DAILY #30 tab 07/09/23 [Rx] Follow up Appointment(s)/Referral(s): [facility], [NON-STAFF] - 07/10/23 10:00 am ([facility] will begin in home visits tomorrow to start teaching about IV antibiotic infusions. Please be home for the visit. ) Kayla Liang MD [STAFF PHYSICIAN] - 07/18/23 11:00 am (Appointment with Lisa nurse practitioner.) [facility], [REFERRING] - As Needed (*[facility] will deliver supplies to your house tonight between 6-8pm. Please be home for the delivery. ) Carlyn Rivera MD [STAFF PHYSICIAN] - 1 Week (Office not answering. Hanny to call you back. If she does not call you back within a couple days, give her a call at the office [phone].) Activity/Diet/Wound Care/Special Instructions: Activity limited until follow-up Follow-up with primary care provider to establish outpatient Follow-up with infectious disease outpatient in the next 1 week Continue with antibiotics therapy for 10 days Continue elevating hand while at rest Follow-up with orthopedics outpatient Discharge/Stand Alone Forms: Area PCPs Discharge Disposition: HOME WITH HOME HEALTH SERVICES
== END 2023-07-09 15:48 | disposition home health service (06) | DRG 513 ==
LOC: EC 16:14 → 4SSUR 20:09 → OBSVTOIN 20:10 → 4SSUR 20:44
PROVIDERS: ADMIT Internal Medicine; ATTEND Internal Medicine
PROC: 0LB80ZZ Excision of Left Hand Tendon, Open Approach (ICD-10-PCS; principal; 2023-07-06 12:00)
DX: M65.842 Other synovitis and tenosynovitis, left hand (principal); I96 Gangrene, not elsewhere classified; L02.512 Cutaneous abscess of left hand; F17.210 Nicotine dependence, cigarettes, uncomplicated; I10 Essential (primary) hypertension; L03.012 Cellulitis of left finger; B95.62 Methicillin resistant Staphylococcus aureus infection as the cause of diseases classified elsewhere; Z65.3 Problems related to other legal circumstances
CPT/HCPCS: 36410; 36415; 76937; 80048; 80053; 80202; 82565; 83605; 85025; 85652; 86140; 87040; 87070; 87075; 87077; 87186; 87205; 90471; 90715; 96365; 96367; 99285

== ENCOUNTER 2024-09-14 01:35 | Emergency (ER) | payer MEDICARE, OTHER ==
--- NOTE | 2024-09-14 02:21 | ED ---
SOB HPI - General Chief Complaint: Shortness of Breath Stated Complaint: SOB,Foot Pain Time Seen by Provider: 09/14/24 02:17 Source: patient, RN notes reviewed Mode of arrival: ambulatory Limitations: no limitations - History of Present Illness Initial Comments: This is a 69-year-old male who presents to the emergency department for shortness of breath. States that it started a couple of hours ago. Denies any chest pain, coughing, or congestion. Also denies any fevers/chills or sick contacts. He is a daily smoker. Denies any history of respiratory illnesses such as asthma or COPD. MD Complaint: shortness of breath - Related Data Previous Rx's Medication Instructions Recorded Acetaminophen Tab [Tylenol] 650 mg PO Q6HR PRN tab 07/09/23 DAPTOmycin [Cubicin] 350 mg IVPB Q24H each 07/09/23 Ibuprofen [Motrin] 400 mg PO Q6HR PRN tab 07/09/23 amLODIPine [Norvasc] 5 mg PO DAILY #30 tab 07/09/23 Albuterol Inhaler [Ventolin Hfa 1 - 2 puff INHALATION Q6H PRN #1 09/14/24 Inhaler] each Allergies Allergy/AdvReac Type Severity Reaction Status Date / Time No Known Allergies Allergy Verified 09/14/24 01:55 Review of Systems ROS Statement: Those systems with pertinent positive or pertinent negative responses have been documented in the HPI. ROS Other: All systems not noted in ROS Statement are negative. Past Medical History Past Medical History: GERD/Reflux Additional Past Medical History / Comment(s): bronchitis. History of Any Multi-Drug Resistant Organisms: MRSA Date of last positivie culture/infection: 07/06/23 MDRO Source:: Finger Left 3rd Past Surgical History: Hernia Repair, Orthopedic Surgery, Tonsillectomy Additional Past Surgical History / Comment(s): R hand injury as a child with tendon grafting (donor L foot) and skin grafting (donor abdominal skin), bilateral inguinal hernia repairs, colonoscopy. Past Anesthesia/Blood Transfusion Reactions: No Reported Reaction Past Psychological History: No Psychological Hx Reported Smoking Status: Current every day smoker Past Alcohol Use History: Daily Past Drug Use History: Marijuana - Past Family History Mother Family Medical History: Asthma Father Family Medical History: Myocardial Infarction (SC) Additional Family Medical History / Comment(s): Father of a SC at the age of 75 yrs. General Exam Limitations: no limitations General appearance: alert, in no apparent distress Head exam: Present: atraumatic, normocephalic, normal inspection Respiratory exam: Present: decreased breath sounds, prolonged expiratory Cardiovascular Exam: Present: regular rate, normal rhythm Neurological exam: Present: alert, oriented X3, CN II-XII intact Psychiatric exam: Present: normal affect, normal mood Skin exam: Present: warm, dry, intact, normal color. Absent: rash Course Vital Signs 09/14/24 09/14/24 09/14/24 01:57 05:03 05:15 Temperature 98.6 F Pulse Rate 51 L 69 68 Respiratory 18 Rate Blood Pressure 124/67 O2 Sat by Pulse 93 L Oximetry 09/14/24 09/14/24 05:47 06:10 Temperature 97.7 F Pulse Rate 72 Respiratory 18 16 Rate Blood Pressure 159/83 O2 Sat by Pulse 98 Oximetry Medical Decision Making - Medical Decision Making This is a 69-year-old male who presents to the emergency department for shortness of breath. Was pt. sent in by a medical professional or institution? @ -No Did you speak to anyone other than the patient for history? @ -No Did you review nursing and triage notes? @ -Yes, and I agree, it is accurate with regards to the patient's symptoms. Were old charts reviewed? @ -No Differential Diagnosis? @ -Differential Dyspnea: Coronary syndrome, arrhythmia, tamponade, asthma, COPD, pulmonary embolism, pneumonia, pneumothorax, pulmonary effusion, anaphylaxis, diabetic ketoacidosis, flailed chest, pulmonary contusion, diaphragmatic rupture, anemia, neuromuscular, this is not meant to be an all-inclusive list. EKG interpreted by me (3pts min.)? @ -EKG interpreted by me demonstrating the following: Sinus rhythm. Ventricular rate 72 bpm, UT interval 148 ms, QRS duration 85 ms, QTc 429 ms. X-rays interpreted by me (1pt min.)? @ -Chest x-ray obtained, my interpretation identifies no localized consolidations or infiltrates. CT interpreted by me (1pt min.)? @ -Not obtained U/S interpreted by me (1pt. min.)? @ -Not obtained What testing was considered but not performed? (CT, X-rays, U/S, labs)? Why? @ -None What meds were considered but not given? Why? @ -None Did you discuss the management of the patient with other professionals? @ -No Did you reconcile home meds? @ -No Was smoking cessation discussed for >3mins.? @ -I discussed smoking cessation for greater than 3 minutes. The risk of smoking were discussed with the patient including but not limited to risks of cancer, stroke, coronary artery disease and COPD. Also discussed with patient were multiple methods of quitting smoking. Lastly we discussed the financial cost of smoking. Was critical care preformed (if so, how long)? @ -No Were there social determinants of health that impacted care today? How? (Homelessness, low income, unemployed, alcoholism, drug addiction, transportati on, low edu. Level, literacy, decrease access to med. care, shelter, rehab)? @ -No Was there de-escalation of care discussed even if they declined? (Discuss DNR or withdrawal of care, Hospice)? @ -No What co-morbidities impacted this encounter? (DM, HTN, Smoking, COPD, CAD, Cancer, CVA, Hep., AIDS, mental health diagnosis, sleep apnea, morbid obesity)? @ -Smoking Was patient admitted / discharged? @ -Discharged. Lab work demonstrates mild leukocytosis with a white blood cell count of 12.32 and is otherwise unremarkable. Troponin negative. BNP negative. Wells criteria is 0. Chest x-ray demonstrates slightly prominent interstitial markings. Duoneb breathing treatment and Solu-Medrol administered in the emergency department. Albuterol inhaler prescribed for further management. Patient discharged home in stable condition. Case discussed with ED attending, Dr. Solis. Return precautions reviewed in depth, the patient is instructed to return to the emergency department with any new, worsening, or concerning symptoms. Patient verbalized understanding. Undiagnosed new problem with uncertain prognosis? @ -None Drug Therapy requiring intensive monitoring for toxicity (Heparin, Nitro, Insulin, Cardizem)? @ -None Were any procedures done? @ -None Diagnosis/symptom? @ -Shortness of breath Acute, or Chronic, or Acute on Chronic? @ -Acute Uncomplicated (without systemic symptoms) or Complicated (systemic symptoms)? @ -Uncomplicated Side effects of treatment? @ -None Exacerbation, Progression, or Severe Exacerbation] @ -Not applicable Poses a threat to life or bodily function? @ -No - Lab Data Result diagrams: 09/14/24 02:45 09/14/24 02:45 Lab Results 09/14/24 09/14/24 09/14/24 Range/Units 02:45 02:45 02:45 WBC 12.32 H (4.50-10.00) 10*3/uL RBC 4.78 (4.40-5.60) 10*6/uL Hgb 15.6 (13.0-17.0) g/dL Hct 45.0 (39.6-50.0) % MCV 94.1 (80.0-97.0) fL MCH 32.6 H (27.0-32.0) pg MCHC 34.7 (32.0-37.0) g/dL Plt Count 242 (140-440) 10*3/uL MPV 10.0 (9.5-12.2) fL Immature Gran % (Auto) 2.7 % Neutrophils % 69.4 % Lymphocytes % 18.1 % Monocytes % 5.4 % Eosinophils % 3.3 % Basophils % 1.1 % Immature Gran # 0.33 H (0.00-0.04) 10*3/uL Neutrophils # 8.56 H (1.80-7.70) 10*3/uL Lymphocytes # 2.23 (0.90-5.00) 10*3/uL Monocytes # 0.66 (0.20-1.00) 10*3/uL Eosinophils # 0.41 H (0.04-0.35) 10*3/uL Basophils # 0.13 H (0.00-0.10) 10*3/uL PT (10.0-12.5) sec INR (<1.2) APTT (22.0-30.0) sec Sodium 136 L (137-145) mmol/L Potassium 4.5 (3.5-5.1) mmol/L Chloride 102 (98-107) mmol/L Carbon Dioxide 23 (22-30) mmol/L Anion Gap 11 mmol/L BUN 21 H (9-20) mg/dL Creatinine 1.07 (0.66-1.25) mg/dL Est GFR (CKD-EPI)AfAm 83 (>60 ml/min/1.73 sqM) Est GFR (CKD-EPI)NonAf 72 (>60 ml/min/1.73 sqM) Glucose 104 H (74-99) mg/dL Calcium 9.5 (8.4-10.2) mg/dL Magnesium 2.4 H (1.6-2.3) mg/dL Total Bilirubin 0.4 (0.2-1.3) mg/dL AST 32 (17-59) U/L ALT 18 (4-49) U/L Alkaline Phosphatase 85 (38-126) U/L Troponin I (0.000-0.034) ng/mL NT-Pro-B Natriuret Pep 335 pg/mL Total Protein 7.0 (6.3-8.2) g/dL Albumin 4.6 (3.5-5.0) g/dL Influenza Type A (PCR) Not Detected (Not Detectd) Influenza Type B (PCR) Not Detected (Not Detectd) RSV (PCR) Not Detected (Not Detectd) SARS-CoV-2 (PCR) Not Detected (Not Detectd) 09/14/24 09/14/24 Range/Units 02:45 02:45 WBC (4.50-10.00) 10*3/uL RBC (4.40-5.60) 10*6/uL Hgb (13.0-17.0) g/dL Hct (39.6-50.0) % MCV (80.0-97.0) fL MCH (27.0-32.0) pg MCHC (32.0-37.0) g/dL Plt Count (140-440) 10*3/uL MPV (9.5-12.2) fL Immature Gran % (Auto) % Neutrophils % % Lymphocytes % % Monocytes % % Eosinophils % % Basophils % % Immature Gran # (0.00-0.04) 10*3/uL Neutrophils # (1.80-7.70) 10*3/uL Lymphocytes # (0.90-5.00) 10*3/uL Monocytes # (0.20-1.00) 10*3/uL Eosinophils # (0.04-0.35) 10*3/uL Basophils # (0.00-0.10) 10*3/uL PT 10.8 (10.0-12.5) sec INR 1.0 (<1.2) APTT 24.4 (22.0-30.0) sec Sodium (137-145) mmol/L Potassium (3.5-5.1) mmol/L Chloride (98-107) mmol/L Carbon Dioxide (22-30) mmol/L Anion Gap mmol/L BUN (9-20) mg/dL Creatinine (0.66-1.25) mg/dL Est GFR (CKD-EPI)AfAm (>60 ml/min/1.73 sqM) Est GFR (CKD-EPI)NonAf (>60 ml/min/1.73 sqM) Glucose (74-99) mg/dL Calcium (8.4-10.2) mg/dL Magnesium (1.6-2.3) mg/dL Total Bilirubin (0.2-1.3) mg/dL AST (17-59) U/L ALT (4-49) U/L Alkaline Phosphatase (38-126) U/L Troponin I <0.012 (0.000-0.034) ng/mL NT-Pro-B Natriuret Pep pg/mL Total Protein (6.3-8.2) g/dL Albumin (3.5-5.0) g/dL Influenza Type A (PCR) (Not Detectd) Influenza Type B (PCR) (Not Detectd) RSV (PCR) (Not Detectd) SARS-CoV-2 (PCR) (Not Detectd) - Radiology Data Radiology results: report reviewed, image reviewed Disposition Clinical Impression: Shortness of breath, Nicotine dependence Disposition: HOME SELF-CARE Condition: Stable Instructions (If sedation given, give patient instructions): Dyspnea (ED), Shortness of Breath (ED) Additional Instructions: Return to the emergency department with any new, worsening, or concerning symptoms. Use the albuterol inhaler every 4-6 hours as needed for shortness of breath. Follow up with your primary care provider in 1-2 days. Prescriptions: Albuterol Inhaler [Ventolin Hfa Inhaler] 1 - 2 puff INHALATION Q6H PRN #1 each PRN Reason: Shortness Of Breath Is patient prescribed a controlled substance at d/c from ED?: No Referrals: None,Stated [Primary Care Provider] - 1-2 days Forms: Area PCPs Time of Disposition: 04:31
[2024-09-14 03:04] LABS: Basophils # (A) 0.13 10*3/uL (0.00-0.10); Basophils % (A) 1.1 %; Eosinophils # (A) 0.41 10*3/uL (0.04-0.35); Eosinophils % (A) 3.3 %; HGB 15.6 g/dL (13.0-17.0); Lymphocytes # (A) 2.23 10*3/uL (0.90-5.00); Lymphocytes % (A) 18.1 %; MCH 32.6 pg (27.0-32.0); MCHC 34.7 g/dL (32.0-37.0); MCV 94.1 fL (80.0-97.0); Monocytes # (A) 0.66 10*3/uL (0.20-1.00); Monocytes % (A) 5.4 %; Neutrophils # (A) 8.56 10*3/uL (1.80-7.70); Neutrophils % (A) 69.4 %; Platelet Count 242 10*3/uL (140-440); RBC 4.78 10*6/uL (4.40-5.60); RDW 13.6 % (11.5-14.5); WBC 12.32 10*3/uL (4.50-10.00)
[2024-09-14 03:16] LABS: ALT 18 U/L (4-49); AST 32 U/L (17-59); African American GFR (CKD) 83 (>60 ml/min/1.73 sqM); Albumin 4.6 g/dL (3.5-5.0); Alkaline Phosphatase 85 U/L (38-126); Anion Gap 11 mmol/L; Blood Urea Nitrogen 21 mg/dL (9-20); Calcium 9.5 mg/dL (8.4-10.2); Carbon Dioxide 23 mmol/L (22-30); Chloride 102 mmol/L (98-107); Glucose 104 mg/dL (74-99); Magnesium 2.4 mg/dL (1.6-2.3); Non-African American GFR(CKD) 72 (>60 ml/min/1.73 sqM); Potassium 4.5 mmol/L (3.5-5.1); Sodium 136 mmol/L (137-145); Total Bilirubin 0.4 mg/dL (0.2-1.3)
[2024-09-14 03:25] LABS: NT-Pro-B-Type Natriuretic Pept 335 pg/mL
[2024-09-14 03:26] LABS: Partial Thromboplastin Time 24.4 sec (22.0-30.0); Prothrombin Time 10.8 sec (10.0-12.5)
--- NOTE | 2024-09-14 03:48 | XR ---
EXAM: XR Chest, 2 Views CLINICAL HISTORY: ITS.REASON XR Reason: CHAD TECHNIQUE: Frontal and lateral views of the chest. COMPARISON: No relevant prior studies available. FINDINGS: Lungs: No consolidation . Calcified granuloma right lung. Slightly prominent interstitial marking. Pleural space: No effusion. Heart: Mild cardiomegaly. Bones/joints: No acute findings. IMPRESSION: Slightly prominent interstitial marking.
[2024-09-14] MEDS: IPRATROPIUM-ALBUTEROL 3 ML NEB INHALATION STA (05:02)
[2024-09-14 05:08] LABS: Influenza A Not Detected (Not Detectd); Influenza B Not Detected (Not Detectd); RSV Not Detected (Not Detectd)
[2024-09-14] MEDS: methylPREDNISolone SOD SUCCI 125 MG/2 ML VIAL IM ONE (05:43)
[2024-09-14 06:12] VITALS: BP 159/83; PULSE 72; RESP 16; TEMP 97.7
== END 2024-09-14 06:10 | disposition home or self-care (01) ==
LOC: EC 01:35
DX: R06.02 Shortness of breath (principal); F17.200 Nicotine dependence, unspecified, uncomplicated
CPT/HCPCS: 36415; 94640; 93005; 83880; 80053; 83735; 84484; 85025; 85610; 85730; 87636; 71046; 99285; 96372; J2919

== ENCOUNTER 2024-10-11 23:15 | Emergency (ER) | payer MEDICARE, OTHER ==
[2024-10-12 00:30] VITALS: RESP 18
[2024-10-12] MEDS: HYDROcodone/APAP 5-325MG 1 EACH TAB PO STA (00:31)
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
--- NOTE | 2024-10-12 02:05 | XR ---
EXAM: XR Right Femur, 2 Views CLINICAL HISTORY: ITS.REASON XR Reason: fall, pain TECHNIQUE: Frontal and lateral views of the right femur. COMPARISON: No relevant prior studies available. FINDINGS: Bones/joints: No acute fracture. No dislocation. Soft tissues: Unremarkable. IMPRESSION: No acute osseous findings.
--- NOTE | 2024-10-12 02:06 | XR ---
EXAM: XR Right Ribs, 2 Views CLINICAL HISTORY: ITS.REASON XR Reason: fall, pain TECHNIQUE: Frontal and oblique views of the right ribs. COMPARISON: No relevant prior studies available. FINDINGS: Lungs: No airspace consolidation. Calcified granuloma right midlung. Pleural space: No significant pleural effusion. No pneumothorax. Mediastinum: Calcified right mediastinal lymph nodes in keeping with chronic granulomatous disease. Bones/joints: No acute fracture. No dislocation. IMPRESSION: No acute findings in the right ribs.
[2024-10-12] MEDS: ACET/COD 300 MG/30 MG STARTER PACK TAB BTL PO STA (02:16)
[2024-10-12 02:40] VITALS: BP 158/97; PULSE 68; TEMP 98.6
== END 2024-10-12 02:42 | disposition home or self-care (01) ==
LOC: EC 23:15
DX: S80.11XA Contusion of right lower leg, initial encounter (principal); S20.211A Contusion of right front wall of thorax, initial encounter; F17.200 Nicotine dependence, unspecified, uncomplicated; W19.XXXA Unspecified fall, initial encounter; Y93.55 Activity, bike riding
CPT/HCPCS: 99283